=== PATIENT | female | born 1945 | race Caucasian/White ===

== ENCOUNTER 2018-07-21 14:42 | Inpatient (IN) | payer MEDICARE ==
[2018-07-21] MEDS ORDERED: Acetaminophen 325 MG TAB PO PRN (15:45)
[2018-07-21] MEDS ORDERED: Bisacodyl 5 MG TAB PO PRN (15:45)
[2018-07-21] MEDS ORDERED: cefTRIAXone\\ROCEPHIN 1 GM VIAL ONE (15:49)
[2018-07-21] MEDS ORDERED: Sodium Chloride 0.9% 1,000 ML IV SCH (16:30)
--- NOTE | 2018-07-21 16:50 | HP ---
PRIMARY CARE PROVIDER: Latoya Doe DO CHIEF COMPLAINT: HISTORY OF PRESENT ILLNESS: Ms. Talley is a pleasant 72-year-old lady, who was seen at [facility] on July 21, 2018. She was seen at [facility] following transfer from [place] for pneumonia and sepsis. She reports that 1 week ago she started feeling unwell. She reports cough over the last week. She denies sputum. She reports nausea, but no vomiting. She also reports fevers as high as 103.5 degrees Fahrenheit. She reports generalized weakness. She was started on a Z-Joseph 4 days ago. She started having diarrhea 2 days ago. She denies any abdominal pain. She reports 10 watery stools daily. She presented to the emergency room at [place]. There, she was diagnosed with pneumonia and sepsis and started on levofloxacin and transferred to this facility for further management. REVIEW OF SYSTEMS: All other systems reviewed and found to be negative. PAST MEDICAL HISTORY: Rheumatoid arthritis and pneumonia. PAST SURGICAL HISTORY: Hysterectomy. SOCIAL HISTORY: The patient denies alcohol use or recreational drug use. She smokes half a pack of cigarettes a day. She lives alone. She does not use any ambulatory aids. CODE STATUS: I discussed her code status. She is full code. ALLERGIES: NO KNOWN DRUG ALLERGIES. CURRENT MEDICATIONS: These need to be clarified, but in the past, the patient was on, 1. Humira. 2. Trevorton p.r.n. 3. Zofran p.r.n. 4. Tizanidine p.r.n. FAMILY HISTORY: Myocardial infarction in her father. PHYSICAL EXAMINATION: GENERAL: On examination, Ms. Talley is awake and alert, not in acute distress. VITAL SIGNS: Blood pressure is 138/97, pulse 83, respiratory rate 20, and oxygen saturation 100% on 4 L of oxygen. She is afebrile. EYES: No scleral icterus. No conjunctival pallor. ENT: Moist mucosal membranes. No oropharyngeal erythema or exudates. NECK: Supple and nontender. Trachea is midline. RESPIRATORY: Accessory muscles of breathing are not active. Chest wall movements are symmetric bilaterally. She has bronchial breathing over the left base. CARDIOVASCULAR: S1 and S2 are heard, regular. Peripheral pulses palpable. No carotid bruit. No pericardial rub. ABDOMEN: Soft and nontender. Bowel sounds heard. No hepatomegaly. No splenomegaly. NEUROLOGIC: Cranial nerves 2 through 12 intact. Deep tendon reflexes 2+. MUSCULOSKELETAL: Power is 5/5 in all 4 extremities. SKIN: No rashes or subcutaneous nodules. LYMPHATIC: No cervical lymphadenopathy. PSYCHIATRIC: Normal mood and normal affect. The patient is oriented to person, place, and time. LABORATORY DATA: Ms. Talley's labs and investigations were reviewed. I reviewed her 12-lead electrocardiogram, which shows sinus tachycardia and no ST changes to suggest an acute coronary syndrome. I also reviewed her chest x-ray, which shows left lower lobe infiltrate. She has normal white count; elevated neutrophil percentage of 89.4%; elevated bands of 38%; decreased sodium of 121; sodium was initially 119 at 1128 hours, improved to 121 at 1341 hours; decreased carbon dioxide of 16; elevated blood urea nitrogen of 38; elevated creatinine of 1.81; elevated AST of 90; normal ALT; normal total bilirubin; elevated alkaline phosphatase of 202. Urinalysis negative for nitrite and leukocyte esterase. ASSESSMENT AND PLAN: Ms. Talley is a pleasant 72-year-old lady, who was seen at [facility] on July 21, 2018. Her problem list includes: 1. Sepsis: Ms. Talley is presenting with sepsis, most likely secondary to pneumonia, although gastrointestinal infection cannot be ruled out given her history of diarrhea. She will be admitted to the hospital for further management. She has been started on levofloxacin. I will continue levofloxacin for now. We will await blood cultures. The patient is immunocompromised given her history of rheumatoid arthritis and history of treatment with immunosuppressant medications. We will also add meropenem to her antibiotic regimen until she improves. 2. Hyponatremia: Etiology is unclear, most likely secondary to pulmonary infection. We will consult Nephrology Service for opinion and help with management. 3. Hypokalemia: We will replace potassium. 4. Acute kidney injury: We will hydrate the patient and recheck. 5. Rheumatoid arthritis: Stable. 6. Tobacco abuse: The patient has been counseled regarding tobacco cessation. We will start nicotine replacement therapy. Many thanks for allowing me to participate in your patient's care. Please feel free to contact me with any questions or concerns. LEVEL OF RISK: High. LEVEL OF COMPLEXITY: High. Job ID: [id number]
[2018-07-21] MEDS ORDERED: Saccharomyces boulardii 250 MG CAP PO SCH (17:00)
[2018-07-21] MEDS ORDERED: Potassium Chloride 20 MEQ TAB PO SCH (17:00)
[2018-07-21] MEDS ORDERED: Azithromycin 500 MG VIAL ONE (17:35)
--- NOTE | 2018-07-21 18:08 | CON ---
DATE OF CONSULTATION: 07/21/2018 CONSULTING PHYSICIAN: Lit Gordon MD REASON FOR CONSULTATION: Hyponatremia and elevated creatinine. HISTORY OF PRESENT ILLNESS: A 72-year-old female with past medical history significant for rheumatoid arthritis on Humira, who was admitted through the ER on transfer from [facility] for further evaluation and treatment of frequent loose stool as well as hyponatremia and fever. The patient reportedly developed fever and generalized weakness of 4 days' duration for which she was seen initially at [place] [facility] on July 18, 2018. She was found to have left lower lobe infiltrate and diagnosis of pneumonia was made and the patient was discharged on oral antibiotics. She reportedly developed frequent loose stool a day after commencement of the oral antibiotics associated with generalized weakness as well as persistent of intermittent fever and shortness of breath. She also reported poor oral intake as well as nausea and weakness. Due to persistent of symptoms and development of diarrhea, the patient went back to the ER in [place] from where she was transferred over here for further evaluation and treatment. Of note, on July 18, the patient was noted to have low sodium of 125. Creatinine then was also noticed to be 1.01, which is mildly above baseline of 0.5 to 0.7. On return to the ER earlier today at [place], she was found to have a sodium of 119 with potassium of 3.0, as well as elevated creatinine of 2.13. Due to all abnormalities, Nephrology consult was requested. The patient admitted to nausea, but denied vomiting. She reportedly had more than 10 bowel motions yesterday, but had about 2 today. She also denied hematochezia, hematuria, dysuria, or hematemesis. She admitted to cough with no sputum production as well as wheezing. She denied abdominal pain, leg swelling or chest pain. In [place] [facility], the patient was treated with 2 L of normal saline as well as 750 mg of Levaquin and 60 mEq of potassium chloride. Repeat BMP showed sodium of 121 with potassium of 3.3. The patient reports feeling better following IV fluid therapy. PAST MEDICAL HISTORY: 1. Rheumatoid arthritis. 2. Chronic tobacco abuse disorder. PAST SURGICAL HISTORY: 1. Hysterectomy. 2. Cholecystectomy. FAMILY HISTORY: Significant for diabetes in mother and hypertension and cardiac disease in father. Both parents are . SOCIAL HISTORY: The patient lives with spouse. Smokes at least 10 cigarettes daily for more than 50 years. Denied alcohol or recreational drug use. ALLERGIES: NO KNOWN DRUG ALLERGIES REPORTED. MEDICATIONS: Prior to hospital medications. 1. Humira. 2. Azithromycin. 3. Augmentin. REVIEW OF SYSTEMS: A 12-point review of system performed was negative other than pertinent positives and negatives included in the history of present illness. PHYSICAL EXAMINATION: VITAL SIGNS: Blood pressure 138/97, pulse 83, respiratory rate 20, temperature 98.1, SpO2 of 100% on 4 L nasal cannula. GENERAL: Elderly female, in no obvious distress. Afebrile. Anicteric. Acyanotic. HEENT: Normocephalic, atraumatic. Pupils are reacting to light. Oral mucosa is dry. NECK: Supple and nontender with full range of motion. No lymphadenopathy or masses appreciated. RESPIRATORY: Fair air entry bilateral with left base crackle and scattered rhonchi appreciated. There is no use of accessory muscles. CARDIOVASCULAR: Regular rhythm and rate with normal heart sounds 1 and 2. GI: Abdomen is full, soft, nontender, nondistended with normal bowel sounds. EXTREMITIES: Extremities are grossly normal looking except few deviations of toes. No obvious edema or erythema was appreciated. Distal pulses are palpable. NEUROLOGIC: Conscious, alert, oriented x3 with appropriate mental status. Cranial nerves 2 through 12 are intact. The patient moves all extremities. DIAGNOSTIC DATA: CBC showed WBC count of 9.0, hemoglobin of 12.6, MCV of 85, platelet of 155. Most recent BMP showed sodium 121, potassium 3.3, chloride 95, CO2 of 16, BUN 38 , creatinine 1.81, glucose 93, calcium 7.4. Two hours prior to this BMP, CMP obtained showed sodium 119, potassium 3.0, chloride 88, CO2 of 17, anion gap 17, BUN 39, creatinine 2.13, glucose 102, calcium 8.7, total bilirubin 1.0, AST 90, ALT 49, alkaline phosphatase 202, total protein 6.3, albumin 3.0, globulin 3.3. Lactic acid earlier today 2.3, but repeat was 0.9. Urinalysis performed on July 18, 2018, showed cloudy yellow urine with specific gravity of 1.025, positive protein, small blood and bilirubin with negative glucose, ketones, nitrite and leukocyte esterase. Microscopy showed 0 to 3 rbc's and wbc 's. Of note, the patient had a sodium of 125 on July 18, 2018. Of note, however, the patient had a normal sodium of 137 in August 2016. The patient also had creatinine of 1.0 in July 18, but prior to that in 2016, creatinine ranges from 0.5 to 0.7. Chest x-ray performed earlier today showed left lower lobe infiltrate/ consolidation. EKG performed earlier today showed sinus tachycardia with no obvious ischemic changes. T-wave and ST-segments were unremarkable. ASSESSMENT: 1. Hyponatremia: Acute is unclear but is definitely not acute. At best, it will be subacute. On presentation in the ER on July 18, the patient has a sodium of 125, but this has worsened to a kelley of 118. Given that the patient had left lower lobe infiltrate and diagnosis of sepsis due to pneumonia on presentation on July 18 with sodium of 125, Legionella pneumonia is a concern. Acute worsening of hyponatremia with commencement of frequent loose stool seem to suggest dehydration with appropriate ADH secretion. Sodium and potassium improved promptly also with normal saline and potassium chloride. 2. LASHAY: Due to prerenal etiology from volume depletion from poor intake and GI losses. 3. Mixed metabolic acidosis due to alkalosis from frequent loose stool and replacement with sodium and chloride containing IV fluid. 4. Moderate dehydration with hyponatremia: Due to volume depletion with appropriate ADH secretion. 5. Hypokalemia: This most likely due to GI losses from frequent loose stool. 6. Frequent loose stools: Etiology seems to be related to antibiotic therapy, C. diff or antibiotics associated diarrhea. 7. Rheumatoid arthritis on Humira. PLAN: 1. We will replete serum potassium and this will help concentrating ability of the kidneys. We will also start the patient on gentle IV fluid therapy and monitor serum electrolytes being mindful of the correction in a 24-hour period not to be more than 12 units. 2. We will also monitor renal function. 3. We will also get urine electrolytes, urine sodium, and urine osmolality. Other treatment as per primary attending. We will follow up along with you and further evaluation and treatment depending on hospital course. Job ID: [id number] [facility]SIDE HOSPITALIzaiah
[2018-07-21 18:28] VITALS: BMI 24.0
[2018-07-21] MEDS: MEROPENEM 1 GM/50 ML 1 GM in Premix Bag 1 BAG IVPB SCH (20:10)
[2018-07-21] MEDS: Nicotine 14 MG PATCH TD SCH (21:06)
[2018-07-21] MEDS: Lactated Ringer's 1,000 ML IV SCH (21:06)
[2018-07-22] MEDS: MEROPENEM 1 GM/50 ML 1 GM in Premix Bag 1 BAG IVPB SCH ×3 (01:02→17:44)
[2018-07-22 07:23] LABS: #Basophils 0.1 thou/uL (0.0-0.2); #Lymphocytes 0.5 thou/uL (1.20-3.40); #Monocytes 0.3 thou/uL (0.11-0.59); #Neutrophils 6.1 thou/uL (1.40-6.50); %Basophils 1.7 % (0.0-1.0); %Eosinophils 0.2 % (0.0-10.0); %Lymphocytes 7.6 % (21.0-51.0); %Monocytes 3.6 % (0.0-10.0); %Neutrophils 86.9 % (42.0-75.0); Hemoglobin 9.9 g/dL (12.0-16.0); Mean Corpuscular HGB CONC 34.1 g/dL (32.0-36.0); Mean Corpuscular Hemoglobin 29.5 pg (27.0-31.0); Mean Corpuscular Volume 86.5 fL (78.0-98.0); Mean Platelet Volume 8.4 fL (7.4-10.4); Platelet Count 145 thou/uL (130-400); RBC Distribution Width 14.2 % (11.5-14.5); Red Blood Cell (RBC) Count 3.35 mill/uL (4.20-5.40)
[2018-07-22 07:41] LABS: Anion Gap 13 mmol/L (10-20); BUN (Urea Nitrogen) 35 mg/dL (9.8-20.1); Calc. Creatinine Clearance 38 mL/min (70-130); Carbon Dioxide 16 mmol/L (23-31); Chloride 100 mmol/L (98-107); Estimated GFR-MDRD 35; Glucose 81 mg/dL (80-115); Potassium 3.6 mmol/L (3.5-5.1); Sodium 125 mmol/L (136-145)
[2018-07-22] MEDS: Saccharomyces boulardii 250 MG CAP PO SCH (08:02)
[2018-07-22] MEDS: Enoxaparin Sodium 40 MG/0.4 ML SYRINGE SC SCH (08:02)
[2018-07-22] MEDS ORDERED: Prevnar 13-Val Conj/PF 0.5 ML SYRINGE IM ONE ×2 (09:00→11:00)
[2018-07-22 09:23] LABS: Potassium, Urine 14.7 mmol/L; Sodium, Urine Less than 20 mmol/L (Not Available)
[2018-07-22 09:30] LABS: Legionella Urinary Ag POSITIVE (Negative)
[2018-07-22] MEDS ORDERED: Potassium Chloride 20 MEQ TAB PO SCH (09:45)
[2018-07-22] MEDS ORDERED: predniSONE 20 MG TAB PO SCH (10:45)
[2018-07-22] MEDS ORDERED: Sodium Bicarbonate Tab 325 MG TAB PO SCH (11:15)
--- NOTE | 2018-07-22 11:29 | PRG ---
DATE OF SERVICE: 07/22/2018 SUBJECTIVE: A 72-year-old female who has been followed up for acute kidney injury and moderate hyponatremia. The patient is still having frequent loose stools, but denied nausea or vomiting. Oral intake, however, is decreased due to poor appetite. Denied fever. Reports persistent cough with little or no sputum production. OBJECTIVE: VITAL SIGNS: Temperature 98.9, pulse 78, respiratory rate 20, SpO2 of 95% on 4 L nasal cannula, blood pressure is 121/65. GENERAL: Acutely ill-looking elderly, in no obvious distress. Afebrile. Anicteric. Acyanotic. HEENT: Normocephalic, atraumatic. Pupils are reacting to light. Oral mucosa is moist. CARDIOVASCULAR: Regular rhythm and rate with normal heart sounds. RESPIRATORY: Decreased air entry left base with prolonged expiration and few scattered rhonchi on the left hemithorax. Expiratory phase is prolonged. GI: Full. Soft. Nontender. Nondistended with normal bowel sounds. EXTREMITIES: Grossly normal looking, atraumatic with no edema or erythema. NEUROLOGIC: Conscious, alert, oriented x3 with appropriate mental status. DIAGNOSTIC DATA: CBC showed WBC count of 7.0, hemoglobin of 9.9, platelet of 145, MCV of 86.5. BMP showed sodium 125, potassium 3.6, chloride 100, CO2 of 16, BUN 35, creatinine 1.48. Of note, creatinine has trended down from above 2 and sodium is up from 118. Magnesium is 1.8. Urine osmolality is 264. Urine sodium is less than 20. ASSESSMENT AND PLAN: 1. Acute kidney injury: Due to volume depletion and hemodynamic factors, the patient is still having frequent loose stools. Creatinine is trending down from above 2 to 1.4 today. We will continue gentle IV hydration and liberal oral intake advised. 2. Hyponatremia: This most likely due to dehydration with appropriate ADH secretion. Creatinine is trending up with gentle IV hydration. Sodium is up from 118 to 125 in the last 24 hours. We will continue crystalloid and monitor serum sodium. 3. Metabolic acidosis: Due to acute kidney injury and increased GI losses from persistent diarrhea. We will start the patient on sodium bicarb. 4. Moderate dehydration with hyponatremia. 5. Hypokalemia: This is due to GI losses from frequent loose stools. Repleted. Potassium today is 3.6. Due to persistent GI losses from continued diarrhea, we will give additional 40 mEq of potassium and get serum magnesium. 6. Rheumatoid arthritis, on Humira and steroid. 7. Left lower lobe pneumonia with presumed chronic obstructive pulmonary disease exacerbation. We would defer to primary attending. 8. We will get repeat renal function test in the morning. Job ID: [id number]
[2018-07-22] MEDS: Lactated Ringer's 1,000 ML IV SCH ×2 (12:17→23:03)
--- NOTE | 2018-07-22 15:21 | PDOC.PN ---
- Subjective Encounter Start Date: 07/22/18 Encounter Start Time: 13:00 Ms. Talley was seen today in follow-up of Pneumonia. She says she does not feel any better. She continues to have a cough, and continues to have diarrhea. - Objective Resuscitation Status - Order Detail: 07/21/18 15:40 Resuscitation Status Routine Resuscitation Status: FULL: Full Resuscitation Discussed with: patient Vital Signs & Weight: Vital Signs (12 hours) Temp Pulse Resp BP Pulse Ox 07/22/18 12:59 84 20 95 07/22/18 07:52 98.9 F 78 20 121/65 95 07/22/18 07:48 96 07/22/18 05:25 99.6 F 88 94 L Weight Weight 149 lb 3 oz I&O: 07/21/18 07/22/18 07/23/18 06:59 06:59 06:59 Intake Total 1400 Balance 1400 Result Diagrams: 07/22/18 06:48 07/22/18 06:48 Phys Exam - Physical Examination HEENT: PERRLA Respiratory: wheezing present Cardiovascular: RRR, no significant murmur, no rub Gastrointestinal: soft, non-tender, no distention, positive bowel sounds Musculoskeletal: no edema, pulses present Neurological: non-focal Dx/Plan (1) Legionella pneumonia Code(s): A48.1 - LEGIONNAIRES' DISEASE Status: Acute (2) Diarrhea Code(s): R19.7 - DIARRHEA, UNSPECIFIED Status: Acute (3) Acute respiratory failure with hypoxemia Code(s): J96.01 - ACUTE RESPIRATORY FAILURE WITH HYPOXIA Status: Acute (4) Tobacco use Code(s): Z72.0 - TOBACCO USE Status: Chronic (5) Hyponatremia Code(s): E87.1 - HYPO-OSMOLALITY AND HYPONATREMIA Status: Acute - Plan * Probable Legionella Pneumonia- will transition her to IV Azithrokmycin. * Diarrhea- this can be associated with Legionella Pneumonia, but will await the results from the stool samples * Tobacco Abuse- discussed smoking cessation * Hyponatremia- continue IV hydration and work-up as per Nephrology
[2018-07-22] MEDS: Nicotine 14 MG PATCH TD SCH (15:43)
[2018-07-22] MEDS: Azithromycin 500 MG in Sodium Chloride 0.9% 250 ML 250 ML IVPB SCH (18:20)
[2018-07-22] MEDS: Sodium Bicarbonate Tab 325 MG TAB PO SCH (20:17)
[2018-07-22] MEDS: guaiFENesin ER 600 MG TAB PO SCH (20:17)
[2018-07-23] MEDS: MEROPENEM 1 GM/50 ML 1 GM in Premix Bag 1 BAG IVPB SCH ×3 (02:20→19:05)
[2018-07-23 07:02] LABS: #Basophils 0.1 thou/uL (0.0-0.2); #Lymphocytes 0.9 thou/uL (1.20-3.40); #Monocytes 0.5 thou/uL (0.11-0.59); #Neutrophils 7.2 thou/uL (1.40-6.50); %Eosinophils 0.2 % (0.0-10.0); %Lymphocytes 10.4 % (21.0-51.0); %Monocytes 5.9 % (0.0-10.0); %Neutrophils 82.5 % (42.0-75.0); Hemoglobin 10.2 g/dL (12.0-16.0); Mean Corpuscular HGB CONC 34.3 g/dL (32.0-36.0); Mean Corpuscular Hemoglobin 29.9 pg (27.0-31.0); Mean Corpuscular Volume 87.1 fL (78.0-98.0); Mean Platelet Volume 8.4 fL (7.4-10.4); Platelet Count 196 thou/uL (130-400); RBC Distribution Width 14.4 % (11.5-14.5); Red Blood Cell (RBC) Count 3.41 mill/uL (4.20-5.40); White Blood Cell (WBC) Count 8.7 thou/uL (4.8-10.8)
[2018-07-23 07:11] LABS: Anion Gap 14 mmol/L (10-20); BUN (Urea Nitrogen) 29 mg/dL (9.8-20.1); Calc. Creatinine Clearance 50 mL/min (70-130); Calcium 8.5 mg/dL (7.8-10.44); Carbon Dioxide 18 mmol/L (23-31); Chloride 101 mmol/L (98-107); Estimated GFR-MDRD 49; Glucose 109 mg/dL (80-115); Potassium 4.1 mmol/L (3.5-5.1); Sodium 129 mmol/L (136-145)
[2018-07-23] MEDS: Enoxaparin Sodium 40 MG/0.4 ML SYRINGE SC SCH (07:59)
[2018-07-23] MEDS: Saccharomyces boulardii 250 MG CAP PO SCH (08:00)
[2018-07-23] MEDS: Lactated Ringer's 1,000 ML IV SCH (08:00)
[2018-07-23] MEDS: predniSONE 20 MG TAB PO SCH (08:00)
[2018-07-23] MEDS: Sodium Bicarbonate Tab 325 MG TAB PO SCH ×2 (08:00→20:34)
[2018-07-23] MEDS: guaiFENesin ER 600 MG TAB PO SCH ×2 (08:00→20:34)
--- NOTE | 2018-07-23 12:17 | PRG ---
DATE OF SERVICE: 07/23/2018 SUBJECTIVE: A 72-year-old female being followed up for LASHAY and hyponatremia. The patient was admitted due to worsening weakness associated with cough and frequent loose stools. Breathing is better and cough is subsiding. She feels better today, and oral intake is improving. Frequent loose stool is subsiding. OBJECTIVE: VITAL SIGNS: Temperature 97.8, pulse 84, respiratory rate 20, SpO2 of 97% on 3 L nasal cannula, and blood pressure is 135/72. GENERAL: Elderly female, in no obvious distress. Afebrile. Anicteric. Acyanotic. HEENT: Normocephalic and atraumatic. Pupils are reacting to light. Oral mucosa is moist. CARDIOVASCULAR: Regular rhythm and rate with normal heart sounds 1 and 2. RESPIRATORY: Decreased air entry in left base with scattered crackles. Few rhonchi also was appreciated on the left base. GI: Full, soft, nontender, and nondistended with normal bowel sounds. EXTREMITIES: Grossly normal looking, atraumatic with no edema or erythema. NEUROLOGIC: Conscious, alert, oriented x3 with appropriate mental status. Cranial nerves 2 through 12 are intact. The patient is ambulant. DIAGNOSTIC DATA: BMP today showed sodium 129, potassium 4.1, chloride 101, CO2 of 18, BUN 29, creatinine 1.1, glucose 109, calcium 8.5. Of note, creatinine was 1.48 yesterday and sodium was 125 yesterday. ASSESSMENT AND PLAN: 1. Acute kidney injury: Due to hemodynamic factors related to volume depletion. Creatinine is trending down progressively with IV fluid therapy. Creatinine today is 1.1. We will continue IV fluid and monitor renal function. 2. Hyponatremia: Due to dehydration with appropriate ADH secretion. Sodium today is 129. We will continue crystalloid and monitor serum sodium. 3. Metabolic acidosis: Due to pneumonia and acute kidney injury. Improving with treatment with bicarb containing fluid. 4. Moderate dehydration: Due to gastrointestinal losses and poor oral intake. Improved. 5. Hypokalemia: Due to gastrointestinal losses from frequent loose stools. Repleted. 6. Left lower lobe pneumonia with chronic obstructive pulmonary disease exacerbation: Improving with appropriate treatment as per primary attending. 7. Rheumatoid arthritis, on Humira and steroid. Job ID: [id number]
--- NOTE | 2018-07-23 14:27 | PDOC.PN ---
- Subjective Encounter Start Date: 07/23/18 Encounter Start Time: 13:25 Ms. Talley was seen today in follow-up of Legionella pneumonia. She says she is feeling better. she has had less shortness of breath and cough, as well as less diarrhea. - Objective Resuscitation Status - Order Detail: 07/21/18 15:40 Resuscitation Status Routine Resuscitation Status: FULL: Full Resuscitation Discussed with: patient MARGARITA Reviewed: Yes Vital Signs & Weight: Vital Signs (12 hours) Temp Pulse Resp BP Pulse Ox 07/23/18 12:00 97 07/23/18 11:32 85 16 94 L 07/23/18 08:00 97 07/23/18 07:26 97.8 F 84 20 135/72 94 L 07/23/18 06:13 83 16 93 L Weight Weight 149 lb 3 oz I&O: 07/22/18 07/23/18 07/24/18 06:59 06:59 06:59 Intake Total 1400 1900 Balance 1400 1900 Result Diagrams: 07/23/18 06:26 07/23/18 06:26 Phys Exam - Physical Examination HEENT: PERRLA Respiratory: wheezing present Cardiovascular: RRR, no significant murmur, no rub Gastrointestinal: soft, non-tender, no distention, positive bowel sounds Musculoskeletal: no edema, pulses present Dx/Plan (1) Legionella pneumonia Code(s): A48.1 - LEGIONNAIRES' DISEASE Status: Acute (2) Diarrhea Code(s): R19.7 - DIARRHEA, UNSPECIFIED Status: Acute (3) Acute respiratory failure with hypoxemia Code(s): J96.01 - ACUTE RESPIRATORY FAILURE WITH HYPOXIA Status: Acute (4) Tobacco use Code(s): Z72.0 - TOBACCO USE Status: Chronic (5) Hyponatremia Code(s): E87.1 - HYPO-OSMOLALITY AND HYPONATREMIA Status: Acute - Plan * Legionella Pneumonia- will continue IV Azithromycin * Diarrhea- improved- C. Diff is negative. Can treat symptomatically with Imodium * Hyponatremia- improved * Hopefully home soon
[2018-07-23] MEDS: Nicotine 14 MG PATCH TD SCH (16:19)
[2018-07-23] MEDS: Azithromycin 500 MG in Sodium Chloride 0.9% 250 ML 250 ML IVPB SCH (17:19)
[2018-07-24] MEDS: MEROPENEM 1 GM/50 ML 1 GM in Premix Bag 1 BAG IVPB SCH ×2 (02:19→09:46)
[2018-07-24] MEDS: Lactated Ringer's 1,000 ML IV SCH (04:30)
[2018-07-24 04:46] LABS: Anion Gap 14 mmol/L (10-20); BUN (Urea Nitrogen) 28 mg/dL (9.8-20.1); Calc. Creatinine Clearance 64 mL/min (70-130); Calcium 8.8 mg/dL (7.8-10.44); Carbon Dioxide 20 mmol/L (23-31); Chloride 102 mmol/L (98-107); Estimated GFR-MDRD 64; Glucose 99 mg/dL (80-115); Potassium 3.7 mmol/L (3.5-5.1); Sodium 132 mmol/L (136-145)
[2018-07-24] MEDS: Enoxaparin Sodium 40 MG/0.4 ML SYRINGE SC SCH (08:09)
[2018-07-24] MEDS: Sodium Bicarbonate Tab 325 MG TAB PO SCH ×2 (08:09→20:41)
[2018-07-24] MEDS: Saccharomyces boulardii 250 MG CAP PO SCH (08:09)
[2018-07-24] MEDS: guaiFENesin ER 600 MG TAB PO SCH ×2 (08:09→20:41)
[2018-07-24] MEDS: predniSONE 20 MG TAB PO SCH (08:09)
--- NOTE | 2018-07-24 08:36 | PRG ---
DATE OF SERVICE: 07/24/2018 SUBJECTIVE: A 72-year-old female being followed up for LASHAY and hyponatremia. The patient reportedly had a cough paroxysm last night, which limited her sleeping. She otherwise feels that she is doing better. Oral intake has improved. She, however, continues to cough with minimal or no sputum production. Denied nausea, vomiting, or diarrhea. OBJECTIVE: VITAL SIGNS: Temperature 98.2, pulse 84, respiratory rate 16, SpO2 of 92% on 2 L nasal cannula, blood pressure is 151/76. GENERAL: Elderly female, in no obvious distress. Afebrile. Anicteric. Acyanotic. HEENT: Normocephalic, atraumatic. Oral mucosa is moist. RESPIRATORY: Fair air entry bilaterally with crackles at both bases, especially on the left side with some scattered rhonchi. Work of breathing is not increased, however. CARDIOVASCULAR: Regular rhythm and rate. Normal heart sounds one and two. GASTROINTESTINAL: Full, soft, nontender, nondistended with normal bowel sounds. EXTREMITIES: Grossly normal-looking atraumatic with no edema, erythema, or cyanosis. NEUROLOGIC: Conscious, and alert and oriented x3 with appropriate mental status. Cranial nerves 2 through 12 are intact. The patient moves all extremities. DIAGNOSTIC DATA: BMP today showed sodium 132, potassium 3.7, chloride 102, CO2 of 20, anion gap 14, BUN 28, creatinine 0.88, glucose 99, calcium 8.8. ASSESSMENT AND PLAN: 1. Acute kidney injury: Due to hemodynamic factors related to volume depletion and poor perfusion. Creatinine is down to 0.88, which is close to her baseline. 2. Hyponatremia: Due to dehydration with appropriate ADH secretion as well as increased free water intake. Sodium level has improved significantly, it is 132 today. We will continue low does LR of further 24 hours. We will recheck BMP tomorrow morning. 3. Metabolic acidosis: Due to sepsis from pneumonia as well as acute kidney injury, improving with bicarb containing IV fluids. 4. Moderate dehydration due to gastrointestinal losses and poor oral intake. Improved. Oral intake has improved significantly. 5. Hypokalemia: Repleted. 6. Left lobar pneumonia with chronic obstructive pulmonary disease exacerbation. Treatment as per primary attending. Job ID: [id number]
--- NOTE | 2018-07-24 13:43 | PDOC.PN ---
- Subjective Encounter Start Date: 07/24/18 Encounter Start Time: 13:41 Ms. Talley says she doesn't feel as well today as she did yesterday. She continues to have a cough, but is is non-productive. She is short of breath again she says more labored. - Objective Resuscitation Status - Order Detail: 07/21/18 15:40 Resuscitation Status Routine Resuscitation Status: FULL: Full Resuscitation Discussed with: patient MAR Reviewed: Yes Vital Signs & Weight: Vital Signs (12 hours) Temp Pulse Resp BP Pulse Ox 07/24/18 12:36 97.6 F 81 20 154/82 H 96 07/24/18 12:00 81 16 96 07/24/18 09:00 86 07/24/18 08:47 97.8 F 100 20 131/62 93 L 07/24/18 05:51 84 20 93 L 07/24/18 05:27 98.2 F 84 16 151/76 H 92 L Weight Weight 149 lb 3 oz I&O: 07/23/18 07/24/18 07/25/18 06:59 06:59 06:59 Intake Total 1900 Balance 1900 Result Diagrams: 07/23/18 06:26 07/24/18 04:07 Phys Exam - Physical Examination HEENT: PERRLA Respiratory: wheezing present + rales at the left base Cardiovascular: RRR, no significant murmur, no rub Gastrointestinal: soft, non-tender, no distention, positive bowel sounds Musculoskeletal: no edema, pulses present Dx/Plan (1) Legionella pneumonia Code(s): A48.1 - LEGIONNAIRES' DISEASE Status: Acute (2) Diarrhea Code(s): R19.7 - DIARRHEA, UNSPECIFIED Status: Acute (3) Acute respiratory failure with hypoxemia Code(s): J96.01 - ACUTE RESPIRATORY FAILURE WITH HYPOXIA Status: Acute (4) Tobacco use Code(s): Z72.0 - TOBACCO USE Status: Chronic (5) Hyponatremia Code(s): E87.1 - HYPO-OSMOLALITY AND HYPONATREMIA Status: Acute - Plan * Legionella Pneumonia- will continue IV Azithromycin- will check a CXR as her symptoms are symptomatically worse * Diarrhea- likely as a result of the above- improving * I suspect she has some undiagnosed COPD ( she is a long time smoker). Continue Duonebs, and will ass a long acting beta-agonist * Hyponatremia- continues to improve
[2018-07-24] MEDS: Nicotine 14 MG PATCH TD SCH (13:58)
--- NOTE | 2018-07-24 14:30 | RAD ---
EXAM: Chest Two Views 07/24/2018 2:26 PM HISTORY: History: Pneumonia COMPARISON: July 18, 2018 FINDINGS: Heart: Normal in size and contour. Pulmonary vessels: Normal. Costophrenic angles: There are new small bilateral pleural effusions. Lungs: There are worsening opacities within the left midlung and left lower lobe. Pneumothorax: None. Osseous structures:There is scattered degenerative and osteoarthritic change present. Additional findings: Cholecystectomy clips. IMPRESSION: Worsening left upper lobe and left lower lobe pneumonia with new bilateral pleural effusions.
[2018-07-24] MEDS ORDERED: Loperamide HCl 2 MG CAP PO PRN (14:45)
[2018-07-24] MEDS: Azithromycin 500 MG in Sodium Chloride 0.9% 250 ML 250 ML IVPB SCH (17:33)
[2018-07-24] MEDS: Mometasone/Formoterol 120 PUFF INHALER INH SCH (18:37)
[2018-07-24] MEDS ORDERED: Dextromethorphan Polistirex 30 MG/5 ML (89 ML BOTTLE) PO SCH (21:30)
[2018-07-25] MEDS: Lactated Ringer's 1,000 ML IV SCH (04:56)
[2018-07-25] MEDS: Mometasone/Formoterol 120 PUFF INHALER INH SCH (06:26)
[2018-07-25 07:28] LABS: Anion Gap 13 mmol/L (10-20); BUN (Urea Nitrogen) 22 mg/dL (9.8-20.1); Calc. Creatinine Clearance 71 mL/min (70-130); Calcium 8.3 mg/dL (7.8-10.44); Carbon Dioxide 22 mmol/L (23-31); Chloride 104 mmol/L (98-107); Estimated GFR-MDRD 72; Glucose 80 mg/dL (80-115); Potassium 3.9 mmol/L (3.5-5.1); Sodium 135 mmol/L (136-145)
[2018-07-25 08:37] VITALS: BP 138/70; TEMP 98.9
--- NOTE | 2018-07-25 09:58 | PRG ---
DATE OF SERVICE: 07/25/2018 SUBJECTIVE: A 72-year-old female admitted for acute respiratory failure with hypoxia due to chronic obstructive pulmonary disease and pneumonia, who we are seeing for LASHAY and hyponatremia. The patient reports feeling a lot better. Still coughing with minimal or no sputum production. Denied nausea, vomiting, or diarrhea. Oral intake has improved. OBJECTIVE: VITAL SIGNS: Temperature 98.9, pulse 85, respiratory rate 20, SpO2 of 92 on 2 L nasal cannula, blood pressure is 138/70. GENERAL: Healthy-looking elderly female, in no obvious distress. Afebrile. Anicteric. Acyanotic. HEENT: Normocephalic, atraumatic. Pupils are equal and reacting to light. CARDIOVASCULAR: Regular rhythm and rate with normal heart sounds 1 and 2. RESPIRATORY: Fair air entry bilateral with left basal crackles and few scattered rhonchi. There is no use of accessory muscles. GI: Full. Soft. Nontender. Nondistended with normal bowel sounds. EXTREMITIES: Grossly normal looking, atraumatic with no edema, erythema, or cyanosis. NEUROLOGIC: Conscious and alert, oriented x3 with appropriate mental status. Cranial nerves 2 through 12 are intact. DIAGNOSTIC DATA: BMP showed sodium 135, potassium 3.9, chloride 104, CO2 of 22, creatinine 0.79, BUN 22, glucose 80, calcium 8.3. ASSESSMENT AND PLAN: 1. Acute kidney injury: Resolved with IV fluid therapy. This is due to prerenal from hemodynamic factors related to volume depletion and sepsis. 2. : Due to dehydration with appropriate ADH secretion. Resolved with continuous IV fluid therapy. 3. Hypokalemia: Repleted. 4. Metabolic acidosis: Due to sepsis and acute kidney injury, improved. 5. Left lower lobe pneumonia and chronic obstructive pulmonary disease exacerbation as well as acute respiratory failure with hypoxia. Treatment as per primary attending. 6. Disposition: The patient can be discharged from Nephrology point of view. We will sign off at this time. Contact us for any clarification or questions. Job ID: [id number]
[2018-07-25] MEDS: guaiFENesin ER 600 MG TAB PO SCH (10:00)
[2018-07-25] MEDS: predniSONE 20 MG TAB PO SCH (10:00)
[2018-07-25] MEDS: Sodium Bicarbonate Tab 325 MG TAB PO SCH (10:00)
[2018-07-25] MEDS: Enoxaparin Sodium 40 MG/0.4 ML SYRINGE SC SCH (10:01)
[2018-07-25] MEDS: Saccharomyces boulardii 250 MG CAP PO SCH (10:01)
--- NOTE | 2018-07-25 16:36 | PDOC.EVN ---
Event Note - Event Note Event Note: Persistent hypoxia in context of chronic tobacco abuse and likely COPD with exacerbation contributing to persistent need for O2 supplementation. Will continue Prednisone, Dulera, Zithromax and arrange for home O2 due to COPD. Please see dictated discharge summary for full details.
--- NOTE | 2018-07-26 04:10 | DIS ---
DATE OF ADMISSION: 07/21/2018 DATE OF DISCHARGE: 07/25/2018 DISCHARGE DIAGNOSES: 1. Legionella pneumonia. 2. Acute hypoxic respiratory failure secondary to #1. 3. Gastroenteritis, resolving. 4. Tobacco abuse. 5. Hyponatremia, improved. 6. Acute kidney injury, resolved. CONSULTATIONS: Dr. Tovar with nephrology service. PERTINENT LAB AND X-RAY FINDINGS: Sodium ranged between 119 to 135. Creatinine ranged between 0.79 to 1.48. Estimated GFR ranged between 35 to 72, magnesium level 1.8. CBC showed a hemoglobin ranged between 9.9 to 10.2. Urine Legionella pneumophila antigen positive, 07/22/2018. Blood cultures x2 from 07/18/2018 showed no growth at 5 days. Blood cultures x2 dated 07/21/2018, no growth at 48 hours. C difficile antigen toxin dated 07/22/2018, negative. Portable chest x-ray dated 07/21/2018, showed left lower lobe pneumonia. Portable chest x-ray dated 07/24/2018, showed left upper and left lower lobe pneumonia with bilateral pleural effusions. HOSPITAL COURSE: The patient was admitted to the medical floor who initially presented with pneumonia, with increased cough and fever. The patient initially managed with Levaquin and continued on Levaquin after admission. The patient underwent evaluation including urine Legionella studies showing a positive Legionella pneumophila antigen. The patient transitioned to Zithromax and continued on IV Zithromax throughout the hospital course. The patient was also noted with hyponatremia likely due to poor oral intake and hypovolemia, receiving IV fluids throughout the hospital course. The patient did have correction of her sodium values as well as potassium and clinically stabilized with supportive management. The patient received hydration due to acute kidney injury as well with normalization of renal function prior to discharge. The patient tolerated regular oral intake and voided appropriately. Vital signs have remained stable. The patient continued to receive oxygen supplementation throughout the hospital course, however, was unable to wean off oxygen support. The patient has been evaluated and will receive home oxygen at 2 L/minute by nasal cannula. I have examined the patient and discussed followup instructions at the time of discharge. The patient verbalized understanding and agreement, ready for discharge on 07/25/2018. DISCHARGE MEDICATIONS: 1. Zithromax 500 mg p.o. daily x7 days. 2. Dulera 2 puffs inhaled b.i.d. 3. Prednisone 40 mg p.o. q.a.m. x3 days, followed by 20 mg p.o. daily x3 days. 4. Vitamin D3 1000 units p.o. daily. 5. Humira 0.8 mL subcutaneously q.7 days. FOLLOWUP: The patient may follow up with her primary care provider, Dr. Latoya Doe, within 7 days of discharge. CONDITION ON DISCHARGE: Stable. ACTIVITY: Ad-narciso. DIET: Regular. SPECIAL INSTRUCTIONS: Home oxygen set up at 2 L/minute by nasal cannula continuously. CODE STATUS: Full. DISPOSITION: Home, 07/25/2018. TIME SPENT: Total time preparing and coordinating discharge, 33 minutes. Job ID: [id number]
== END 2018-07-25 19:08 | disposition home or self-care (01) | DRG 177 ==
LOC: ERS 14:42 → ERHOLD 15:52 → T4-A 18:31
PROVIDERS: ADMIT Internal Medicine; ATTEND Internal Medicine
DX: A48.1 Legionnaires' disease (principal); J96.01 Acute respiratory failure with hypoxia; J44.1 Chronic obstructive pulmonary disease with (acute) exacerbation; N17.9 Acute kidney failure, unspecified; E87.1 Hypo-osmolality and hyponatremia; E87.2 Acidosis; J44.0 Chronic obstructive pulmonary disease with (acute) lower respiratory infection; F17.210 Nicotine dependence, cigarettes, uncomplicated; E87.6 Hypokalemia; M06.9 Rheumatoid arthritis, unspecified; K52.9 Noninfective gastroenteritis and colitis, unspecified; E86.0 Dehydration; Z90.49 Acquired absence of other specified parts of digestive tract; Z90.710 Acquired absence of both cervix and uterus; Z79.899 Other long term (current) drug therapy; Z79.52 Long term (current) use of systemic steroids
CPT/HCPCS: 36415; 71046; 80048; 82436; 82570; 83735; 83930; 83935; 84133; 84300; 85025; 87324; 87449; 87899; 90471; 90670; 94640; 96365; 96375; G0009; J0456; J0696; J1650; J2185; J7050; J7512; J7620

== ENCOUNTER 2018-09-12 08:09 | Day surgery (SDC) | payer MEDICARE ==
--- NOTE | 2018-09-09 10:07 | HP ---
This is an H and P for thoracentesis on Wednesday. HISTORY OF PRESENT ILLNESS: Ms. Talley is a very pleasant woman, who was hospitalized here in July with pneumonia. This is felt to be legionnaires given a positive urinary Legionella antigen. She was treated with a macrolide and sent home, and says she has been feeling better, but her x-rays failed to improve. She had a CT scan that showed a left pleural effusion and atelectasis of her left lower lobe. I was consulted to see her for further evaluation of this. PAST MEDICAL HISTORY: Remarkable for, 1. Smoking. 2. Status post hysterectomy. 3. Status post cholecystectomy. 4. History of oxygen that was prescribed when she was discharged on 07/25/2018. 5. History rheumatoid arthritis, off medicines. 6. History of pneumonia in the past. SOCIAL HISTORY: She is a half pack-a-day smoker. She says she has cut back to 3 cigarettes a day since she was in the hospital. PHYSICAL EXAMINATION: VITAL SIGNS: Pulse 76, respiratory rate 18, oximetry is 94 to 95 on room air in the office after 30 minutes. HEENT: Pupils are equal. Sclerae are anicteric. Extraocular movements are intact. NECK: Supple. No lymphadenopathy. LUNGS: Clear with exception of decreased breath sounds at her left base. HEART: Regular rhythm. S1 and S2 are normal. No gallop. No murmur. ABDOMEN: Soft and nontender. EXTREMITIES: Without clubbing, cyanosis, or edema. NEUROLOGIC: Nonfocal. IMPRESSION: CT scan shows pleural effusion on the left and atelectasis of her left lower lobe. PLAN: Thoracentesis first. If this does not give us a diagnosis, then perhaps fiberoptic bronchoscopy will be needed. Risk of bleeding, infection, lung collapse, and least likely were explained to the patient and is on the schedule for Wednesday. Job ID: [id number]
[2018-09-12 09:59] LABS: Fluid, pH - Pleural Fld 7.24 (7.60 - 7.66)
[2018-09-12 11:19] LABS: Fluid, Protein 5.9 g/dL (Not Available)
[2018-09-12 13:01] LABS: BF Color White; Body Fluid Source Thoracentesis Fluid; Clarity Clear (Clear); RBC Background Count 0.002; Tube # EDTA
[2018-09-12 13:22] LABS: BF WBC/Nonhematics Ct. - Manua 7275 /cumm
[2018-09-12 13:23] LABS: BF RBC Count - Manual 945 /cumm
[2018-09-12 13:27] LABS: BF Segmented Neutrophils 4 %; Cell Count Non Hematic 40 %; Lymphocytes 56 %
--- NOTE | 2018-09-12 16:44 | OP ---
DATE OF PROCEDURE: 09/12/2018 PROCEDURE PERFORMED: Thoracentesis. NURSING HOME ADMINISTRATOR: Iván Ventura MD DESCRIPTION OF PROCEDURE: Consent was obtained from the patient prior to the procedure. Left posterior hemithorax was prepped with chlorhexidine. 10 mL of 1% lidocaine was used to anesthetize the skin and the pleura. The fluid was localized with a 22-gauge needle. An 8-Eritrean catheter was inserted and approximately 450 mL of clear yellow pleural fluid was evacuated without difficulty. There was no clinical indication of pneumothorax, so a chest x-ray was not done. She was observed for a period of time after the procedure to make sure she was stable and discharged to home. She is to contact me in 2 days for results. Job ID: [id number]
== END 2018-09-12 10:02 | disposition home or self-care (01) ==
LOC: SDC 08:09
PROVIDERS: ATTEND Internal Medicine Critical Care Medicine
PROC: 0W9B30Z Drainage of Left Pleural Cavity with Drainage Device, Percutaneous Approach (ICD-10-PCS; principal; 2018-09-12)
DX: J90 Pleural effusion, not elsewhere classified (principal); J98.11 Atelectasis; F17.210 Nicotine dependence, cigarettes, uncomplicated; M06.9 Rheumatoid arthritis, unspecified; Z87.01 Personal history of pneumonia (recurrent); Z90.49 Acquired absence of other specified parts of digestive tract; Z79.899 Other long term (current) drug therapy
CPT/HCPCS: 32554; 82150; 82945; 83615; 84157; 85060; 87070; 87102; 87116; 87205; 87206; 88112; 88184; 88305; 89051

== ENCOUNTER 2018-09-29 09:01 | Outpatient (CLI) | payer MEDICARE ==
--- NOTE | 2018-09-29 09:34 | RAD ---
2 views of the chest: 09/29/2018 COMPARISON: 08/31/2018 HISTORY: Pneumonia and dyspnea FINDINGS: There is no pneumothorax seen on either side. The right lung is clear. There is dense pleural and parenchymal opacity identified within the left lung base, most prominent p osteriorly on the lateral examination. When compared to the 08/31/2018 examination there has been interval improvement in the pleural and parenchymal opacity but there is significant residual dense l eft basilar pleural and parenchymal opacity. This density appears lobulated and confined posteriorly on the lateral examination which could signify loculated pleural effusion. This may be be tter assessed with follow-up CT examination. IMPRESSION: Improved pleural and parenchyma opacity in the left lung base, with significant residual opacity seen. Findings suggest infectious pneumonitis/aspiration with parapneumonic effusion, possibly loculated.
== END 2018-09-29 09:02 | disposition home or self-care (01) ==
LOC: RAD 09:01
PROVIDERS: ATTEND Internal Medicine Critical Care Medicine
DX: R06.00 Dyspnea, unspecified (principal); R91.8 Other nonspecific abnormal finding of lung field
CPT/HCPCS: 71046

== ENCOUNTER 2018-11-16 09:21 | Outpatient (CLI) | payer MEDICARE ==
--- NOTE | 2018-11-16 09:39 | RAD ---
EXAM: Chest 2 views: HISTORY: Dyspnea COMPARISON: 09/29/2018 FINDINGS: There is a normal-sized cardiomediastinal silhouette. A small left pleural effusion. No consolidation or mass are seen. The bones are unremarkable. IMPRESSION: Small left pleural effusion
== END 2018-11-16 09:22 | disposition home or self-care (01) ==
LOC: RAD 09:21
PROVIDERS: ATTEND Internal Medicine Critical Care Medicine
DX: R06.00 Dyspnea, unspecified (principal); J90 Pleural effusion, not elsewhere classified
CPT/HCPCS: 71046

== ENCOUNTER 2018-11-23 09:58 | Day surgery (SDC) | payer MEDICARE ==
[2018-11-22 11:28] VITALS: BMI 20.1
--- NOTE | 2018-11-22 12:11 | HP ---
Areli Talley is for bronchoscopy tomorrow. HISTORY OF PRESENT ILLNESS: Ms. Talley is a very pleasant woman, who was treated earlier this year for pneumonia. She had an effusion. She was referred for persistence of her left lower lobe abnormalities. She underwent thoracentesis at the beginning of September. Fluid was exudative with 7275 red cells, mostly lymphocytes. Cytopathology was negative. Followup chest x-ray done last week showed very little recurrence of pleural fluid, but she still has an alveolar infiltrate in her left base. Plan is for bronchoscopy to rule out bronchoalveolar carcinoma or another cause. PAST MEDICAL HISTORY: Remarkable for; 1. Rheumatoid arthritis. 2. Status post hysterectomy. 3. Status post cholecystectomy. FAMILY HISTORY: Negative for lung disease in early age. Positive for diabetes, heart disease. SOCIAL HISTORY: She is a smoker. She has a distant history of heavy alcohol use. She does not use drugs. ALLERGIES: SHE HAS NO DRUG ALLERGIES. REVIEW OF SYSTEMS: Ten-point review of systems otherwise negative. PHYSICAL EXAMINATION: VITAL SIGNS: Blood pressure in the office 130/76, pulse 80, respiratory rate is 18, oximetry 94% on room air. HEENT: Pupils are equal. Sclerae are anicteric. NECK: Without lymphadenopathy. LUNGS: Remarkable for crackles at her left base. HEART: Regular rhythm. No S3. ABDOMEN: Soft and nontender. EXTREMITIES: Without clubbing, cyanosis, or edema. NEUROLOGIC: Grossly nonfocal. IMPRESSION: Persistent infiltrate left base. PLAN: Bronchoscopy with transbronchial biopsies. Risks of bleeding, infection, lung collapse and least likely were explained to the patient. She is willing to proceed. All questions of the patient and family were answered. Job ID: [id number]
[2018-11-23] MEDS ORDERED: Lidocaine 2% Jelly 5 ML TUBE ONE ×2 (10:07→10:08)
[2018-11-23] MEDS ORDERED: Benzocaine 20% Spray 60 ML CAN ONE (10:07)
[2018-11-23] MEDS ORDERED: Lidocaine 1% (PF) 30 ML VIAL ONE (10:07)
[2018-11-23] MEDS ORDERED: Fentanyl 100 MCG/2 ML VIAL ONE (10:55)
[2018-11-23] MEDS ORDERED: Lidocaine 4% PF 5 ML AMP NEB SCH (11:45)
[2018-11-23] MEDS ORDERED: Sodium Chloride 0.9% 1,000 ML IV SCH (11:45)
[2018-11-23] MEDS ORDERED: Lidocaine 1% PF 5 ML VIAL ONE (12:42)
[2018-11-23] MEDS ORDERED: PROPOFOL 200 MG/20 ML VIAL ONE (12:42)
[2018-11-23] MEDS ORDERED: Dexamethasone 20 MG/5 ML VIAL ONE (12:42)
[2018-11-23] MEDS ORDERED: Rocuronium Bromide 10 MG/ML (10ML VIAL) ONE (12:42)
[2018-11-23] MEDS ORDERED: Ondansetron PF 4 MG/2 ML Vial ONE (12:42)
--- NOTE | 2018-11-23 14:48 | RAD ---
PORTABLE CHEST: 11/23/18 INDICATIONS: Post left lung biopsy. COMPARISON: 11/16/18. Also compared to CT 11/06/18. Hazy opacity in the left perihilar region probably relates to the mass density noted on CT in the pos terior left mid chest. There is evidence of left pleural effusion. Right lung appears clear. Heart an d mediastinum unremarkable. IMPRESSION: Hazy left perihilar opacity may relate to the known mass density seen on recent CT. Persistent left e ffusion again noted. No acute interval change. POS: OFF
--- NOTE | 2018-11-24 08:39 | OP ---
DATE OF PROCEDURE: 11/23/2018 PROCEDURES PERFORMED: Bronchoscopy with transbronchial biopsies under fluoroscopy with lower lobe washings, lower lobe brushings. INDICATION: Persistent left lower lobe alveolar infiltrate. INDICATIONS FOR PROCEDURE: Ms. Talley was brought to Day surgery, identified and then transferred to the endo suite. She was sedated with anesthesia via general endotracheal intubation. DESCRIPTION OF PROCEDURE: Bronchoscope was introduced once she was sedated via the endotracheal tube and passed down under left lower lobe. Washings were obtained randomly in the lower lobe segmental bronchi followed by transbronchial biopsies x5 under fluoroscopy. The scope was then withdrawn. All respective segments, left lung and right lung were identified with no endobronchial lesions identified. The patient was transferred to Day Surgery. A chest radiograph was done. No pneumothorax was seen. She will follow up with me Wednesday for results. Specimens were sent for cultures for AFB, fungus and bacteria and then brushings and biopsies were sent for cytology to rule out bronchoalveolar carcinoma or bronchiolitis obliterans and organizing pneumonia would seem to me be the most likely 2 diagnoses. Job ID: [id number]
== END 2018-11-23 15:13 | disposition home or self-care (01) ==
LOC: SDC 09:58
PROVIDERS: ATTEND Internal Medicine Critical Care Medicine
PROC: 0BDJ8ZX Extraction of Left Lower Lung Lobe, Via Natural or Artificial Opening Endoscopic, Diagnostic (ICD-10-PCS; principal; 2018-11-23)
PROC: 0BDJ8ZX Extraction of Left Lower Lung Lobe, Via Natural or Artificial Opening Endoscopic, Diagnostic (ICD-10-PCS; 2018-11-23)
DX: R91.8 Other nonspecific abnormal finding of lung field (principal); J90 Pleural effusion, not elsewhere classified; F17.200 Nicotine dependence, unspecified, uncomplicated; M06.9 Rheumatoid arthritis, unspecified
CPT/HCPCS: 71045; 76000; 87070; 87102; 87116; 87205; 87206; 88112; 88305; 88312; 94640; J1100; J2001; J2405; J2704; J3010; J7620

== ENCOUNTER 2019-01-04 10:38 | Outpatient (CLI) | payer MEDICARE, OTHER ==
--- NOTE | 2019-01-04 12:10 | RAD ---
2 VIEW CHEST: Date: 01/04/19 INDICATION: Dyspnea. COMPARISON: 11/16/18 and 11/23/18. FINDINGS: Persistent density in the posterior left lower lobe which appears to abut the posterior pleural surfa ce on the lateral view. I cannot exclude a developing cavitary component on the lateral exam. Right lung remains clear. IMPRESSION: Persistent opacity which appears pleural based in the posterior right lower lobe. There is suggestion of cavitation on the lateral view within this area of density. Close follow-up recommended. POS: TPC
== END 2019-01-04 10:39 | disposition home or self-care (01) ==
LOC: RAD 10:38
PROVIDERS: ATTEND Internal Medicine Critical Care Medicine
DX: R06.00 Dyspnea, unspecified (principal); R91.8 Other nonspecific abnormal finding of lung field
CPT/HCPCS: 71046

== ENCOUNTER 2019-08-08 10:34 | Outpatient (CLI) | payer MEDICARE, OTHER ==
--- NOTE | 2019-08-08 10:57 | RAD ---
EXAM: Chest PA and lateral: HISTORY: Dyspnea COMPARISON: 11/06/2018, 01/04/2019 FINDINGS: Heart: Normal cardiac silhouette Aorta: Atherosclerosis. The ascending thoracic aorta appears to be enlarged. Pulmonary vessels: Normal Costophrenic angles: Costophrenic angles are clear. Lungs: Hyperinflation. Persistent opacification of the left lower lobe. Scar or atelectasis are favor ed. Underlying mass cannot be excluded Pneumothorax: No pneumothorax Osseous structures: No osseous abnormalities IMPRESSION: 1. Prominence of the ascending thoracic aorta 2. Hyperinflation 3. Persistent opacification of the left lower lobe which may represent sequelae of previous infection . If there is concern for underlying mass, repeat CT can be performed. CT from 11/06/2018 demonstrate dense consolidation in the left lower lobe CODE T
== END 2019-08-08 10:35 | disposition home or self-care (01) ==
LOC: BICRAD 10:34
PROVIDERS: ATTEND Internal Medicine Critical Care Medicine
DX: R06.00 Dyspnea, unspecified (principal); R91.8 Other nonspecific abnormal finding of lung field
CPT/HCPCS: 71046

== ENCOUNTER 2020-06-13 09:28 | Outpatient (CLI) | payer MEDICARE, OTHER | END 2020-06-13 09:29 | disposition home or self-care (01) | LOC: BICRAD 09:28 | PROVIDERS: ATTEND Internal Medicine Critical Care Medicine | DX: R06.00 Dyspnea, unspecified (principal) | CPT/HCPCS: 71046 ==

== ENCOUNTER 2021-09-22 10:15 | Outpatient (CLI) | payer MEDICARE, OTHER | END 2021-09-22 10:16 | disposition home or self-care (01) | LOC: RAD 10:15 | PROVIDERS: ATTEND Internal Medicine Critical Care Medicine | DX: R06.00 Dyspnea, unspecified (principal); R91.8 Other nonspecific abnormal finding of lung field | CPT/HCPCS: 71046 ==

== ENCOUNTER 2022-03-20 18:11 | Inpatient (IN) | payer MEDICARE, OTHER ==
[~2022-03-20 18:11] MED LIST: Iopamidol-370 76% 500 ML 1 ML ONE
[2022-03-20] MEDS ORDERED: Magnesium 2 GM/50 ML BAG (IN WATER) ONE (18:38)
[2022-03-20] MEDS ORDERED: cefTRIAXone\\ROCEPHIN 1 GM VIAL ONE (18:38)
[2022-03-20] MEDS ORDERED: Dexamethasone 10 MG/ML VIAL ONE (18:41)
[2022-03-20 18:56] LABS: #Lymphocytes 1.1 thou/uL (1.20-3.40); #Monocytes 0.3 thou/uL (0.11-0.59); #Neutrophils 11.9 thou/uL (1.40-6.50); %Basophils 0.1 % (0.0-1.0); %Eosinophils 0.2 % (0.0-10.0); %Lymphocytes 8.1 % (21.0-51.0); %Neutrophils 89.7 % (42.0-75.0); Hemoglobin 13.9 g/dL (12.0-16.0); Mean Corpuscular HGB CONC 33.9 g/dL (32.0-36.0); Mean Corpuscular Hemoglobin 29.6 pg (27.0-31.0); Mean Corpuscular Volume 87.4 fl (78.0-98.0); Mean Platelet Volume 6.7 fL (7.4-10.4); Platelet Count 513 10x3/uL (130-400); RBC Distribution Width 13.4 % (11.5-14.5); Red Blood Cell (RBC) Count 4.69 mill/uL (4.20-5.40); White Blood Cell (WBC) Count 13.3 10x3/uL (4.8-10.8)
[2022-03-20 19:15] LABS: ALT (SGPT) 18 U/L (8-55); AST (SGOT) 19 U/L (5-34); Albumin 4.2 g/dL (3.4-4.8); Alkaline Phosphatase 286 U/L (40-110); Anion Gap 17 mmol/L (10-20); BUN (Urea Nitrogen) 13 mg/dL (9.8-20.1); Bilirubin, Total 0.3 mg/dL (0.2-1.2); CK (CPK) 28 U/L (29-168); Calc. Creatinine Clearance 0 mL/min (70-130); Calcium 9.8 mg/dL (7.8-10.44); Carbon Dioxide 20 mmol/L (23-31); Chloride 94 mmol/L (98-107); Estimated GFR 92; Globulin 3.5 g/dL (2.4-3.5); Glucose 101 mg/dL (83-110); Lipase 43 U/L (8-78); Potassium 4.4 mmol/L (3.5-5.1); Protein, Total 7.7 g/dL (5.8-8.1); Sodium 127 mmol/L (136-145)
[2022-03-20] MEDS ORDERED: LORazepam 2 MG/ML SYR.(CARPUJECT) ONE (21:01)
[2022-03-20 21:29] LABS: SARS-CoV-2 NAA Rapid Test Not Detected (NotDetected)
[2022-03-20] MEDS ORDERED: Ondansetron PF 4 MG/2 ML Vial IVP PRN (21:30)
[2022-03-20] MEDS ORDERED: Ondansetron ODT 4 MG TAB SL PRN (21:30)
[2022-03-20] MEDS ORDERED: Ipratropium/Albuterol 3 ML NEB NEB PRN (21:32)
[2022-03-20] MEDS: Sodium Chloride 0.9% 1,000 ML IV SCH (21:40)
[2022-03-20] MEDS ORDERED: Senokot S 8.6-50 MG TAB PO PRN (22:21)
[2022-03-20] MEDS ORDERED: Amlodipine 10 MG TAB PO SCH (22:45)
[2022-03-20] MEDS ORDERED: Nicotine 14 MG PATCH ONE (22:48)
[2022-03-20] MEDS: Nicotine 21 MG PATCH TD SCH (23:11)
[2022-03-21] MEDS: Ipratropium/Albuterol 3 ML NEB NEB SCH ×3 (00:05→07:54)
[2022-03-21] MEDS ORDERED: Ipratropium/Albuterol 3 ML NEB ONE (03:00)
[2022-03-21 05:50] LABS: #Lymphocytes 0.8 thou/uL (1.20-3.40); #Monocytes 0.2 thou/uL (0.11-0.59); #Neutrophils 7.6 thou/uL (1.40-6.50); %Basophils 0.1 % (0.0-1.0); %Eosinophils 0.2 % (0.0-10.0); %Lymphocytes 9.2 % (21.0-51.0); %Monocytes 2.2 % (0.0-10.0); %Neutrophils 88.3 % (42.0-75.0); Hemoglobin 11.6 g/dL (12.0-16.0); Mean Corpuscular HGB CONC 34.2 g/dL (32.0-36.0); Mean Corpuscular Volume 87.6 fl (78.0-98.0); Mean Platelet Volume 6.2 fL (7.4-10.4); Platelet Count 435 10x3/uL (130-400); RBC Distribution Width 13.2 % (11.5-14.5); Red Blood Cell (RBC) Count 3.85 mill/uL (4.20-5.40); White Blood Cell (WBC) Count 8.6 10x3/uL (4.8-10.8)
[2022-03-21] MEDS ORDERED: Dexamethasone 10 MG/ML VIAL SLOW IVP SCH (06:00)
[2022-03-21 06:13] LABS: Anion Gap 12 mmol/L (10-20); BUN (Urea Nitrogen) 13 mg/dL (9.8-20.1); Calc. Creatinine Clearance 0 mL/min (70-130); Calcium 8.6 mg/dL (7.8-10.44); Carbon Dioxide 18 mmol/L (23-31); Chloride 104 mmol/L (98-107); Estimated GFR 97; Glucose 130 mg/dL (83-110); Sodium 130 mmol/L (136-145)
[2022-03-21] MEDS ORDERED: Dexamethasone 4 mg/ml Vial ONE (06:17)
[2022-03-21 07:07] VITALS: BMI 22.8
[2022-03-21] MEDS: Sodium Chloride 0.9% 1,000 ML IV SCH (08:45)
[2022-03-21] MEDS ORDERED: FLU VACC QS2022-23(65YR UP)/PF 240 MCG/0.7 ML SYRINGE IM ONE (10:15)
[2022-03-21] MEDS ORDERED: Lorazepam 0.5 MG TAB PO PRN (10:24)
[2022-03-21] MEDS ORDERED: traMADol HCl 50 MG TAB PO PRN (10:31)
[2022-03-21] MEDS: Azithromycin 500 MG in Sodium Chloride 0.9% 250 ML 250 ML IVPB SCH (11:51)
[2022-03-21] MEDS: Famotidine 20 MG TAB PO SCH ×2 (11:52→20:44)
[2022-03-21] MEDS: Nicotine 21 MG PATCH TD SCH (17:12)
[2022-03-21] MEDS: Acetaminophen 325 MG TAB PO PRN (19:47)
[2022-03-21] MEDS: cefTRIAXone\\ROCEPHIN 1 GM in Sodium Chloride 0.9% 100 ML IVPB SCH (20:43)
[2022-03-21] MEDS: Amlodipine 10 MG TAB PO SCH (20:44)
[2022-03-21] MEDS: Melatonin 3 MG TAB PO PRN (20:44)
[2022-03-21] MEDS: tiZANidine HCl 4 MG TAB PO SCH (20:45)
[2022-03-22] MEDS: traMADol HCl 50 MG TAB PO PRN (01:55)
[2022-03-22] MEDS: Lorazepam 0.5 MG TAB PO PRN (03:06)
[2022-03-22] MEDS: Acetaminophen 325 MG TAB PO PRN (03:06)
[2022-03-22] MEDS: Cyanocobalamin (Vitamin B-12) 1,000 MCG TAB PO SCH (09:08)
[2022-03-22] MEDS: Dexamethasone 4 mg/ml Vial SLOW IVP SCH (09:08)
[2022-03-22] MEDS: Famotidine 20 MG TAB PO SCH ×2 (09:08→20:15)
[2022-03-22] MEDS: Cholecalciferol 1,000 UNITS (25 MCG) TAB PO SCH (09:08)
[2022-03-22] MEDS: Azithromycin 500 MG in Sodium Chloride 0.9% 250 ML 250 ML IVPB SCH (09:26)
[2022-03-22] MEDS: cefTRIAXone\\ROCEPHIN 1 GM in Sodium Chloride 0.9% 100 ML IVPB SCH (19:21)
[2022-03-22] MEDS: Nicotine 21 MG PATCH TD SCH (20:13)
[2022-03-22] MEDS: Amlodipine 10 MG TAB PO SCH (20:15)
[2022-03-22] MEDS: Melatonin 3 MG TAB PO PRN (20:15)
[2022-03-22] MEDS: tiZANidine HCl 4 MG TAB PO SCH (20:16)
[2022-03-23] MEDS: Lorazepam 0.5 MG TAB PO PRN (03:15)
[2022-03-23 06:20] LABS: #Eosinphils 0.1 thou/uL (0.0-0.7); #Lymphocytes 2.7 thou/uL (1.20-3.40); #Monocytes 1.1 thou/uL (0.11-0.59); #Neutrophils 8.1 thou/uL (1.40-6.50); %Basophils 0.1 % (0.0-1.0); %Eosinophils 0.6 % (0.0-10.0); %Lymphocytes 22.8 % (21.0-51.0); %Neutrophils 67.5 % (42.0-75.0); Hemoglobin 12.4 g/dL (12.0-16.0); Mean Corpuscular HGB CONC 33.3 g/dL (32.0-36.0); Mean Corpuscular Hemoglobin 29.1 pg (27.0-31.0); Mean Corpuscular Volume 87.4 fl (78.0-98.0); Mean Platelet Volume 6.5 fL (7.4-10.4); Platelet Count 484 10x3/uL (130-400); RBC Distribution Width 13.3 % (11.5-14.5); Red Blood Cell (RBC) Count 4.25 mill/uL (4.20-5.40); White Blood Cell (WBC) Count 11.9 10x3/uL (4.8-10.8)
[2022-03-23 06:39] LABS: Anion Gap 13 mmol/L (10-20); BUN (Urea Nitrogen) 12 mg/dL (9.8-20.1); Calc. Creatinine Clearance 75 mL/min (70-130); Calcium 8.9 mg/dL (7.8-10.44); Carbon Dioxide 22 mmol/L (23-31); Chloride 101 mmol/L (98-107); Estimated GFR 96; Glucose 85 mg/dL (83-110); Potassium 3.5 mmol/L (3.5-5.1); Sodium 132 mmol/L (136-145)
[2022-03-23] MEDS: Cholecalciferol 1,000 UNITS (25 MCG) TAB PO SCH (08:13)
[2022-03-23] MEDS: Cyanocobalamin (Vitamin B-12) 1,000 MCG TAB PO SCH (08:13)
[2022-03-23] MEDS: Azithromycin 500 MG in Sodium Chloride 0.9% 250 ML 250 ML IVPB SCH (08:13)
[2022-03-23] MEDS: Dexamethasone 4 mg/ml Vial SLOW IVP SCH (08:14)
[2022-03-23] MEDS: Famotidine 20 MG TAB PO SCH (08:14)
[2022-03-23] MEDS: traMADol HCl 50 MG TAB PO PRN (08:14)
[2022-03-23] MEDS ORDERED: Senokot S 8.6-50 MG TAB PO PRN (08:30)
[2022-03-23] MEDS ORDERED: Polyethylene Glycol 3350 17 GM Packet PO PRN (14:05)
[2022-03-23] MEDS: tiZANidine HCl 4 MG TAB PO SCH (20:00)
[2022-03-23] MEDS: Nicotine 21 MG PATCH TD SCH (20:00)
[2022-03-23] MEDS ORDERED: Ibuprofen 600 MG TAB PO SCH (20:00)
[2022-03-23] MEDS: cefTRIAXone\\ROCEPHIN 1 GM in Sodium Chloride 0.9% 100 ML IVPB SCH (20:01)
[2022-03-23] MEDS: Amlodipine 10 MG TAB PO SCH (20:03)
[2022-03-24] MEDS: traMADol HCl 50 MG TAB PO PRN ×3 (02:58→21:40)
[2022-03-24] MEDS: Lorazepam 0.5 MG TAB PO PRN ×2 (02:59→20:51)
[2022-03-24 05:37] LABS: #Basophils 0.1 thou/uL (0.0-0.2); #Eosinphils 0.1 thou/uL (0.0-0.7); #Lymphocytes 3.2 thou/uL (1.20-3.40); #Monocytes 1.3 thou/uL (0.11-0.59); #Neutrophils 8.8 thou/uL (1.40-6.50); %Basophils 0.5 % (0.0-1.0); %Eosinophils 0.4 % (0.0-10.0); %Lymphocytes 23.5 % (21.0-51.0); %Monocytes 9.9 % (0.0-10.0); %Neutrophils 65.6 % (42.0-75.0); Hemoglobin 13.1 g/dL (12.0-16.0); Mean Corpuscular HGB CONC 32.7 g/dL (32.0-36.0); Mean Corpuscular Hemoglobin 28.6 pg (27.0-31.0); Mean Corpuscular Volume 87.4 fl (78.0-98.0); Mean Platelet Volume 6.4 fL (7.4-10.4); Platelet Count 524 10x3/uL (130-400); RBC Distribution Width 13.3 % (11.5-14.5); Red Blood Cell (RBC) Count 4.57 mill/uL (4.20-5.40); White Blood Cell (WBC) Count 13.4 10x3/uL (4.8-10.8)
[2022-03-24 05:49] LABS: Anion Gap 12 mmol/L (10-20); BUN (Urea Nitrogen) 13 mg/dL (9.8-20.1); Calc. Creatinine Clearance 75 mL/min (70-130); Carbon Dioxide 22 mmol/L (23-31); Chloride 102 mmol/L (98-107); Potassium 3.8 mmol/L (3.5-5.1); Sodium 132 mmol/L (136-145)
[2022-03-24 05:50] LABS: Calcium 9.1 mg/dL (7.8-10.44); Estimated GFR 96; Glucose 89 mg/dL (83-110)
[2022-03-24] MEDS: Azithromycin 500 MG in Sodium Chloride 0.9% 250 ML 250 ML IVPB SCH (08:08)
[2022-03-24] MEDS ORDERED: Fentanyl 250 MCG/5 ML VIAL ONE (13:20)
[2022-03-24] MEDS ORDERED: SUGAMMADEX SODIUM 200 MG/2 ML VIAL ONE (13:20)
[2022-03-24] MEDS ORDERED: Dexamethasone 4 mg/ml Vial ONE (13:34)
[2022-03-24] MEDS ORDERED: Bupivacaine HCl 0.5%/Epinephrine 1:200,000/PF 30 ml Vial ONE (13:34)
[2022-03-24] MEDS ORDERED: Albuterol HFA (OR) 200 PUFF INH ONE (13:50)
[2022-03-24] MEDS ORDERED: NEOSTIGMINE 3 MG/3 ML SYR 3 MG/3 ML SYRINGE ONE (13:50)
[2022-03-24] MEDS ORDERED: Glycopyrrolate 0.2 MG/ML 5 ML SYRINGE ONE (13:50)
[2022-03-24] MEDS ORDERED: Lidocaine 1% PF 5 ML VIAL ONE (13:50)
[2022-03-24] MEDS ORDERED: Rocuronium Bromide 10 MG/ML (10ML VIAL) ONE (13:50)
[2022-03-24] MEDS ORDERED: PROPOFOL 200 MG/20 ML VIAL ONE (13:50)
[2022-03-24] MEDS ORDERED: Dexamethasone 20 MG/5 ML VIAL ONE (13:50)
[2022-03-24] MEDS ORDERED: PHENYLEPHRINE-NS 100 MCG/ML 10 ML SYRINGE ONE (13:50)
[2022-03-24] MEDS ORDERED: Ondansetron PF 4 MG/2 ML Vial ONE (13:50)
[2022-03-24] MEDS ORDERED: Ondansetron HCl/PF 4 MG/2 ML Vial IVP PRN (14:51)
[2022-03-24] MEDS ORDERED: Promethazine HCl 25 MG/ML VIAL IM PRN (14:51)
[2022-03-24] MEDS ORDERED: Fentanyl 100 MCG/2 ML VIAL ONE (15:01)
[2022-03-24] MEDS: Cyanocobalamin (Vitamin B-12) 1,000 MCG TAB PO SCH (16:38)
[2022-03-24] MEDS: Cholecalciferol 1,000 UNITS (25 MCG) TAB PO SCH (16:39)
[2022-03-24] MEDS: Famotidine 20 MG TAB PO SCH (16:39)
[2022-03-24] MEDS: Dexamethasone 4 mg/ml Vial SLOW IVP SCH (16:40)
[2022-03-24] MEDS: Nicotine 21 MG PATCH TD SCH (20:49)
[2022-03-24] MEDS: tiZANidine HCl 4 MG TAB PO SCH (20:50)
[2022-03-24] MEDS: Melatonin 3 MG TAB PO PRN (20:51)
[2022-03-24] MEDS: Amlodipine 10 MG TAB PO SCH (20:51)
[2022-03-24] MEDS: cefTRIAXone\\ROCEPHIN 1 GM in Sodium Chloride 0.9% 100 ML IVPB SCH (20:53)
[2022-03-25] MEDS: traMADol HCl 50 MG TAB PO PRN (04:53)
[2022-03-25 05:55] LABS: #Lymphocytes 2.2 thou/uL (1.20-3.40); #Monocytes 1.1 thou/uL (0.11-0.59); #Neutrophils 13.4 thou/uL (1.40-6.50); %Eosinophils 0.3 % (0.0-10.0); %Lymphocytes 13.3 % (21.0-51.0); %Monocytes 6.5 % (0.0-10.0); Hemoglobin 14.7 g/dL (12.0-16.0); Mean Corpuscular HGB CONC 32.2 g/dL (32.0-36.0); Mean Corpuscular Hemoglobin 28.4 pg (27.0-31.0); Mean Corpuscular Volume 88.2 fl (78.0-98.0); Mean Platelet Volume 6.7 fL (7.4-10.4); Platelet Count 543 10x3/uL (130-400); RBC Distribution Width 13.3 % (11.5-14.5); Red Blood Cell (RBC) Count 5.18 mill/uL (4.20-5.40); White Blood Cell (WBC) Count 16.7 10x3/uL (4.8-10.8)
[2022-03-25 06:11] LABS: Anion Gap 15 mmol/L (10-20); BUN (Urea Nitrogen) 14 mg/dL (9.8-20.1); Calc. Creatinine Clearance 68 mL/min (70-130); Calcium 9.6 mg/dL (7.8-10.44); Carbon Dioxide 21 mmol/L (23-31); Chloride 97 mmol/L (98-107); Estimated GFR 94; Glucose 95 mg/dL (83-110); Potassium 4.3 mmol/L (3.5-5.1); Sodium 129 mmol/L (136-145)
[2022-03-25] MEDS: Azithromycin 500 MG in Sodium Chloride 0.9% 250 ML 250 ML IVPB SCH (09:17)
[2022-03-25] MEDS: Cyanocobalamin (Vitamin B-12) 1,000 MCG TAB PO SCH (09:17)
[2022-03-25] MEDS: Cholecalciferol 1,000 UNITS (25 MCG) TAB PO SCH (09:17)
[2022-03-25] MEDS: Famotidine 20 MG TAB PO SCH (09:18)
[2022-03-25] MEDS: Dexamethasone 4 mg/ml Vial SLOW IVP SCH (09:18)
[2022-03-25] MEDS: Cefuroxime 250 MG TAB PO SCH (21:15)
[2022-03-25] MEDS: tiZANidine HCl 4 MG TAB PO SCH (21:16)
[2022-03-25] MEDS: Acetaminophen 325 MG TAB PO PRN (21:17)
[2022-03-25] MEDS: Amlodipine 10 MG TAB PO SCH (21:18)
[2022-03-25] MEDS: Nicotine 21 MG PATCH TD SCH (21:34)
[2022-03-26] MEDS: Lorazepam 0.5 MG TAB PO PRN ×2 (00:10→20:28)
[2022-03-26] MEDS: Famotidine 20 MG TAB PO SCH (09:03)
[2022-03-26] MEDS: Cefuroxime 250 MG TAB PO SCH ×2 (09:03→20:29)
[2022-03-26] MEDS: Acetaminophen 325 MG TAB PO PRN (09:03)
[2022-03-26] MEDS: Cholecalciferol 1,000 UNITS (25 MCG) TAB PO SCH (09:03)
[2022-03-26] MEDS: Cyanocobalamin (Vitamin B-12) 1,000 MCG TAB PO SCH (09:03)
[2022-03-26] MEDS: predniSONE 20 MG TAB PO SCH (09:03)
[2022-03-26 09:29] LABS: Chloride 98 mmol/L (98-107); Potassium 3.4 mmol/L (3.5-5.1); Sodium 130 mmol/L (136-145)
[2022-03-26 09:30] LABS: Calcium 9.6 mg/dL (7.8-10.44); Glucose 160 mg/dL (83-110)
[2022-03-26 09:32] LABS: Anion Gap 11 mmol/L (10-20); Carbon Dioxide 24 mmol/L (23-31)
[2022-03-26 09:33] LABS: Calc. Creatinine Clearance 60 mL/min (70-130); Estimated GFR 91
[2022-03-26 09:34] LABS: BUN (Urea Nitrogen) 16 mg/dL (9.8-20.1)
[2022-03-26] MEDS ORDERED: Potassium Chloride 20 MEQ TAB PO SCH (13:15)
[2022-03-26] MEDS ORDERED: Iopamidol-370 76% 500 ML 1 ML ONE (15:33)
[2022-03-26] MEDS: tiZANidine HCl 4 MG TAB PO SCH (20:24)
[2022-03-26] MEDS: Amlodipine 10 MG TAB PO SCH (20:30)
[2022-03-26] MEDS: Nicotine 21 MG PATCH TD SCH (20:31)
[2022-03-26] MEDS: traMADol HCl 50 MG TAB PO PRN (21:14)
[2022-03-27] MEDS: Lorazepam 0.5 MG TAB PO PRN (08:35)
[2022-03-27] MEDS: predniSONE 20 MG TAB PO SCH (10:18)
[2022-03-27] MEDS: Famotidine 20 MG TAB PO SCH (10:18)
[2022-03-27] MEDS: Cyanocobalamin (Vitamin B-12) 1,000 MCG TAB PO SCH (10:18)
[2022-03-27] MEDS: Cholecalciferol 1,000 UNITS (25 MCG) TAB PO SCH (10:18)
[2022-03-27] MEDS: Cefuroxime 250 MG TAB PO SCH (10:19)
[2022-03-27 15:08] VITALS: BP 166/85; TEMP 98.1
[2022-03-27] MEDS ORDERED: Magnevist 469MG/ML 20 ML VIAL ONE (15:39)
== END 2022-03-27 17:10 | disposition home or self-care (01) | DRG 166 ==
LOC: ERS 18:11 → ERHOLD 21:11 → MSONC 03-21 09:24
PROVIDERS: ADMIT Student in an Organized Health Care Education/Training Program; ATTEND Internal Medicine
PROC: 07B73ZX Excision of Thorax Lymphatic, Percutaneous Approach, Diagnostic (ICD-10-PCS; principal; 2022-03-24)
DX: C78.1 Secondary malignant neoplasm of mediastinum (principal); J18.9 Pneumonia, unspecified organism; C34.92 Malignant neoplasm of unspecified part of left bronchus or lung; E87.1 Hypo-osmolality and hyponatremia; J44.1 Chronic obstructive pulmonary disease with (acute) exacerbation; J44.0 Chronic obstructive pulmonary disease with (acute) lower respiratory infection; C79.31 Secondary malignant neoplasm of brain; M06.9 Rheumatoid arthritis, unspecified; Z51.5 Encounter for palliative care; E03.9 Hypothyroidism, unspecified; F17.210 Nicotine dependence, cigarettes, uncomplicated; I10 Essential (primary) hypertension; Z90.710 Acquired absence of both cervix and uterus; Z90.49 Acquired absence of other specified parts of digestive tract
CPT/HCPCS: 36415; 70553; 71045; 71275; 74177; 80048; 80053; 82550; 83605; 83690; 83880; 84300; 84484; 85025; 85379; 87040; 87811; 88305; 88341; 88342; 93005; 94640; 96365; 96367; 96375; A9579; J0456; J0696; J1100; J1650; J2060; J2405; J2704; J3010; J3475; J3490; J7050; J7512; J7620; Q9967

== ENCOUNTER 2022-04-20 13:13 | Emergency (ER) | payer MEDICARE, OTHER ==
[~2022-04-20 13:13] MED LIST changes: +Iopamidol 370 76% 100 ML VIAL ONE; -Iopamidol-370 76% 500 ML 1 ML ONE
[2022-04-20 13:55] LABS: #Lymphocytes 1.6 thou/uL (1.20-3.40); #Monocytes 0.7 thou/uL (0.11-0.59); #Neutrophils 8.7 thou/uL (1.40-6.50); %Basophils 0.2 % (0.0-1.0); %Eosinophils 0.3 % (0.0-10.0); %Lymphocytes 14.8 % (21.0-51.0); %Monocytes 6.1 % (0.0-10.0); %Neutrophils 78.7 % (42.0-75.0); Hemoglobin 12.7 g/dL (12.0-16.0); Mean Corpuscular HGB CONC 33.5 g/dL (32.0-36.0); Mean Corpuscular Hemoglobin 28.8 pg (27.0-31.0); Mean Platelet Volume 6.6 fL (7.4-10.4); Platelet Count 556 10x3/uL (130-400); White Blood Cell (WBC) Count 11.1 10x3/uL (4.8-10.8)
[2022-04-20 14:17] LABS: ALT (SGPT) 21 U/L (8-55); AST (SGOT) 17 U/L (5-34); Albumin 3.8 g/dL (3.4-4.8); Alkaline Phosphatase 183 U/L (40-110); Anion Gap 15 mmol/L (10-20); BUN (Urea Nitrogen) 10 mg/dL (9.8-20.1); Bilirubin, Total 0.4 mg/dL (0.2-1.2); Calc. Creatinine Clearance 0 mL/min (70-130); Calcium 9.4 mg/dL (7.8-10.44); Carbon Dioxide 23 mmol/L (23-31); Chloride 93 mmol/L (98-107); Estimated GFR 93; Globulin 2.9 g/dL (2.4-3.5); Glucose 103 mg/dL (83-110); Lipase 19 U/L (8-78); Potassium 4.6 mmol/L (3.5-5.1); Protein, Total 6.7 g/dL (5.8-8.1); Sodium 126 mmol/L (136-145)
[2022-04-20 17:38] LABS: Bilirubin Negative (Negative); Blood, Urine Negative (Negative); Clarity Clear (Clear); Glucose, Urine (Dipstick) Normal (Negative); Ketone, Urine Negative (Negative); Leukocyte Negative Leu/uL (Negative); Nitrite Negative (Negative); Protein, Urine (Dipstick) Negative (Neg-Trace); Specific Gravity, Urine 1.039 (1.002-1.036); Urobilinogen Normal mg/dL (Less than 2); pH, Urine 7.5 (5.0-9.0)
[2022-04-20] MEDS ORDERED: Ondansetron PF 4 MG/2 ML Vial ONE (17:46)
[2022-04-20] MEDS ORDERED: Pantoprazole 40 MG VIAL ONE (17:46)
== END 2022-04-20 20:23 | disposition home or self-care (01) ==
LOC: ERS 13:13
DX: A08.4 Viral intestinal infection, unspecified (principal); E86.0 Dehydration; I10 Essential (primary) hypertension; C79.51 Secondary malignant neoplasm of bone; D72.829 Elevated white blood cell count, unspecified; F17.210 Nicotine dependence, cigarettes, uncomplicated
CPT/HCPCS: 36415; 74177; 80053; 81003; 83690; 84484; 85025; 93005; 96361; 96374; 96375; C9113; J2405

== ENCOUNTER → 2022-04-22 | Outpatient (CLI) | payer MEDICARE, OTHER | LOC: PET 11:00 | PROVIDERS: ATTEND Radiology Radiation Oncology | DX: C34.2 Malignant neoplasm of middle lobe, bronchus or lung (principal); C79.31 Secondary malignant neoplasm of brain; E27.8 Other specified disorders of adrenal gland | CPT/HCPCS: 78815; A9552 ==

== ENCOUNTER 2022-06-05 14:12 | Outpatient (CLI) | payer MEDICARE, OTHER | END 2022-06-05 14:13 | disposition home or self-care (01) | LOC: CT 14:12 | PROVIDERS: ATTEND Internal Medicine | DX: R19.7 Diarrhea, unspecified (principal); R10.9 Unspecified abdominal pain; R11.0 Nausea; C34.90 Malignant neoplasm of unspecified part of unspecified bronchus or lung; E27.9 Disorder of adrenal gland, unspecified | CPT/HCPCS: 74177; Q9967 ==

== ENCOUNTER 2022-06-25 11:00 | Outpatient (CLI) | payer MEDICARE, OTHER | END 2022-06-25 11:01 | disposition home or self-care (01) | LOC: PET 11:00 | PROVIDERS: ATTEND Internal Medicine | DX: C34.82 Malignant neoplasm of overlapping sites of left bronchus and lung (principal); C77.1 Secondary and unspecified malignant neoplasm of intrathoracic lymph nodes; R94.8 Abnormal results of function studies of other organs and systems; C71.9 Malignant neoplasm of brain, unspecified; I67.82 Cerebral ischemia; M89.8X8 Other specified disorders of bone, other site | CPT/HCPCS: 70553; 78815; A9552 ==

== ENCOUNTER 2022-06-25 12:38 | Outpatient (CLI) | payer MEDICARE, OTHER | END 2022-06-25 12:39 | disposition home or self-care (01) | LOC: SCSMRI 12:38 | PROVIDERS: ATTEND Internal Medicine | DX: C34.82 Malignant neoplasm of overlapping sites of left bronchus and lung (principal); C71.9 Malignant neoplasm of brain, unspecified; I67.82 Cerebral ischemia; M89.8X8 Other specified disorders of bone, other site | CPT/HCPCS: 70553 ==

== ENCOUNTER 2022-08-24 13:57 | Inpatient (IN) | payer MEDICARE, OTHER ==
[~2022-08-24 13:57] MED LIST changes: -Iopamidol 370 76% 100 ML VIAL ONE; +Iopamidol-370 76% 500 ML MDV (1 ML CHARGE) ONE
[2022-08-24 16:00] LABS: #Monocytes 0.5 thou/uL (0.11-0.59); #Neutrophils 7.5 thou/uL (1.40-6.50); %Basophils 0.2 % (0.0-1.0); %Eosinophils 0.1 % (0.0-10.0); %Lymphocytes 12.2 % (21.0-51.0); %Neutrophils 82.3 % (42.0-75.0); Hemoglobin 9.6 g/dL (12.0-16.0); Mean Corpuscular HGB CONC 33.2 g/dL (32.0-36.0); Mean Corpuscular Hemoglobin 27.1 pg (27.0-31.0); Mean Corpuscular Volume 81.6 fl (78.0-98.0); Mean Platelet Volume 9.7 fL (7.4-10.4); Platelet Count 362 10x3/uL (130-400); RBC Distribution Width 15.8 % (11.5-14.5); Red Blood Cell (RBC) Count 3.54 mill/uL (4.20-5.40); White Blood Cell (WBC) Count 9.1 10x3/uL (4.8-10.8)
[2022-08-24 16:22] LABS: ALT (SGPT) 10 U/L (8-55); AST (SGOT) 22 U/L (5-34); Albumin 2.7 g/dL (3.4-4.8); Alkaline Phosphatase 259 U/L (40-110); Anion Gap 17 mmol/L (10-20); BUN (Urea Nitrogen) 7 mg/dL (9.8-20.1); Bilirubin, Total 0.2 mg/dL (0.2-1.2); Calc. Creatinine Clearance 0 mL/min (70-130); Calcium 8.7 mg/dL (7.8-10.44); Carbon Dioxide 17 mmol/L (23-31); Chloride 91 mmol/L (98-107); Estimated GFR 92; Globulin 3.1 g/dL (2.4-3.5); Glucose 71 mg/dL (83-110); Magnesium 1.2 mg/dL (1.6-2.6); Potassium 2.8 mmol/L (3.5-5.1); Protein, Total 5.8 g/dL (5.8-8.1); Sodium 122 mmol/L (136-145)
[2022-08-24] MEDS ORDERED: Potassium Chloride 20 MEQ TAB ONE (17:43)
[2022-08-24] MEDS ORDERED: Morphine 4 MG/ML VIAL ONE ×2 (17:43→23:02)
[2022-08-24] MEDS ORDERED: Magnesium 2 GM/50 ML BAG (IN WATER) ONE (17:43)
[2022-08-24] MEDS ORDERED: Ondansetron PF 4 MG/2 ML Vial ONE (17:54)
[2022-08-24] MEDS ORDERED: traMADol HCl 50 MG TAB PO PRN (18:56)
[2022-08-24] MEDS ORDERED: Lorazepam 0.5 MG TAB PO PRN (18:56)
[2022-08-24] MEDS ORDERED: Ipratropium/Albuterol 3 ML NEB EZPAP PRN (18:58)
[2022-08-24] MEDS ORDERED: Acetaminophen 325 MG TAB PO PRN (18:59)
[2022-08-24] MEDS ORDERED: Nicotine 14 MG PATCH TD SCH (19:00)
[2022-08-24] MEDS ORDERED: Sodium Chloride 0.9% 1,000 ML IV SCH (19:00)
[2022-08-24 19:50] LABS: Anion Gap 17 mmol/L (10-20); BUN (Urea Nitrogen) 6 mg/dL (9.8-20.1); Calc. Creatinine Clearance 0 mL/min (70-130); Calcium 8.5 mg/dL (7.8-10.44); Carbon Dioxide 16 mmol/L (23-31); Chloride 93 mmol/L (98-107); Estimated GFR 93; Glucose 65 mg/dL (83-110); Magnesium 3.4 mg/dL (1.6-2.6); Phosphorus 2.6 mg/dL (2.3-4.7); Potassium 2.8 mmol/L (3.5-5.1); Sodium 123 mmol/L (136-145)
[2022-08-24] MEDS: Transdermal Patch Removal TOP SCH (20:15)
[2022-08-24] MEDS: Nicotine 14 MG PATCH TD SCH (20:15)
[2022-08-24] MEDS ORDERED: Cefepime 2 GM VIAL ONE (21:55)
[2022-08-24] MEDS: Cefepime 2 GM in Sodium Chloride 0.9% 100 ML IVPB SCH (22:00)
[2022-08-24] MEDS ORDERED: Dextrose 5% in Water 1,000 ML IV PRN (22:12)
[2022-08-24] MEDS ORDERED: Glucagon 1 MG/ML KIT IM PRN (22:12)
[2022-08-24] MEDS ORDERED: Dextrose 50% Abboject 50 ML SYRINGE SLOW IVP PRN (22:12)
[2022-08-24] MEDS: Potassium Chloride 20 MEQ in Premix Bag 1 BAG IVPB SCH (22:44)
[2022-08-24] MEDS ORDERED: Potassium Chloride 20 MEQ/100 ML PREMIX BAG ONE (23:01)
[2022-08-24] MEDS ORDERED: Dextrose 50% Abboject 50 ML SYRINGE ONE (23:03)
[2022-08-24 23:51] LABS: Anion Gap 16 mmol/L (10-20); BUN (Urea Nitrogen) 6 mg/dL (9.8-20.1); Calc. Creatinine Clearance 0 mL/min (70-130); Calcium 8.5 mg/dL (7.8-10.44); Carbon Dioxide 18 mmol/L (23-31); Chloride 95 mmol/L (98-107); Estimated GFR 92; Glucose 69 mg/dL (83-110); Potassium 3.8 mmol/L (3.5-5.1); Sodium 125 mmol/L (136-145)
[2022-08-25 01:50] LABS: Anion Gap 10 mmol/L (10-20); BUN (Urea Nitrogen) 6 mg/dL (9.8-20.1); Calc. Creatinine Clearance 0 mL/min (70-130); Calcium 8.5 mg/dL (7.8-10.44); Carbon Dioxide 22 mmol/L (23-31); Chloride 94 mmol/L (98-107); Estimated GFR 92; Glucose 114 mg/dL (83-110); Magnesium 1.5 mg/dL (1.6-2.6); Potassium 2.9 mmol/L (3.5-5.1); Sodium 123 mmol/L (136-145)
[2022-08-25 01:51] VITALS: BMI 14.7
[2022-08-25] MEDS: Potassium Chloride 20 MEQ in Premix Bag 1 BAG IVPB SCH ×2 (02:08→20:52)
[2022-08-25] MEDS: Morphine 4 MG/ML VIAL SLOW IVP PRN ×4 (03:29→20:48)
[2022-08-25 04:09] LABS: RBC/HPF 0-3 HPF (0-3); Squamous Epithelial 0-3 HPF (0-3); WBC/HPF 0-3 HPF (0-3)
[2022-08-25 04:10] LABS: Bacteria/HPF 1+ HPF (None Seen)
[2022-08-25 04:30] LABS: Legionella Urinary Ag Negative (Negative)
[2022-08-25 04:32] LABS: #Monocytes 0.3 thou/uL (0.11-0.59); #Neutrophils 5.6 thou/uL (1.40-6.50); %Basophils 0.2 % (0.0-1.0); %Eosinophils 0.2 % (0.0-10.0); %Lymphocytes 11.3 % (21.0-51.0); %Monocytes 3.9 % (0.0-10.0); %Neutrophils 84.1 % (42.0-75.0); Hemoglobin 9.7 g/dL (12.0-16.0); Mean Corpuscular HGB CONC 32.6 g/dL (32.0-36.0); Mean Corpuscular Hemoglobin 26.4 pg (27.0-31.0); Mean Corpuscular Volume 81.2 fl (78.0-98.0); Mean Platelet Volume 8.7 fL (7.4-10.4); Platelet Count 286 10x3/uL (130-400); RBC Distribution Width 15.6 % (11.5-14.5); Red Blood Cell (RBC) Count 3.67 mill/uL (4.20-5.40); White Blood Cell (WBC) Count 6.6 10x3/uL (4.8-10.8)
[2022-08-25 04:58] LABS: Anion Gap 12 mmol/L (10-20); BUN (Urea Nitrogen) 5 mg/dL (9.8-20.1); Calc. Creatinine Clearance 56 mL/min (70-130); Calcium 8.5 mg/dL (7.8-10.44); Carbon Dioxide 21 mmol/L (23-31); Chloride 96 mmol/L (98-107); Estimated GFR 94; Glucose 67 mg/dL (83-110); Magnesium 1.4 mg/dL (1.6-2.6); Potassium 3.6 mmol/L (3.5-5.1); Sodium 125 mmol/L (136-145)
[2022-08-25] MEDS ORDERED: Magnesium Sulfate In Water 4 GM in Premix Bag 1 BAG IVPB SCH (07:15)
[2022-08-25] MEDS: Cefepime 2 GM in Sodium Chloride 0.9% 100 ML IVPB SCH ×2 (09:05→22:03)
[2022-08-25] MEDS ORDERED: Sodium Bicarbonate 150 MEQ in Sodium Chloride 0.45% 1,000 ML IV SCH (11:00)
[2022-08-25] MEDS ORDERED: Acetaminophen 650 MG Suppository PR PRN (12:00)
[2022-08-25] MEDS ORDERED: Acetaminophen 650 MG Suppository PR SCH (12:00)
[2022-08-25] MEDS ORDERED: Morphine 4 MG/ML VIAL SLOW IVP PRN (12:03)
[2022-08-25] MEDS ORDERED: Morphine 2 MG/ML VIAL SLOW IVP PRN (12:33)
[2022-08-25] MEDS ORDERED: Pantoprazole 40 MG VIAL IVP SCH (12:45)
[2022-08-25 14:37] LABS: Anion Gap 12 mmol/L (10-20); BUN (Urea Nitrogen) 6 mg/dL (9.8-20.1); Calc. Creatinine Clearance 66 mL/min (70-130); Calcium 8.3 mg/dL (7.8-10.44); Carbon Dioxide 21 mmol/L (23-31); Chloride 96 mmol/L (98-107); Estimated GFR 98; Glucose 67 mg/dL (83-110); Sodium 126 mmol/L (136-145)
[2022-08-25] MEDS: fentaNYL 75 mcg/hour Patch TD SCH (14:56)
[2022-08-25] MEDS ORDERED: Dextrose 5 % And 0.9 % NaCl 1,000 ML IV SCH (15:45)
[2022-08-25] MEDS ORDERED: Dextrose 10% in Water 1,000 ML IV SCH (16:00)
[2022-08-25 16:59] LABS: Phosphorus 2.4 mg/dL (2.3-4.7)
[2022-08-25] MEDS: Ketorolac Tromethamine 30 MG/ML VIAL IVP SCH (17:17)
[2022-08-25] MEDS: Diclofenac 1% 100 GM GEL TP SCH ×2 (17:18→21:00)
[2022-08-25 17:24] LABS: Anion Gap 12 mmol/L (10-20); BUN (Urea Nitrogen) 6 mg/dL (9.8-20.1); Calc. Creatinine Clearance 61 mL/min (70-130); Calcium 8.4 mg/dL (7.8-10.44); Carbon Dioxide 20 mmol/L (23-31); Chloride 96 mmol/L (98-107); Estimated GFR 96; Glucose 60 mg/dL (83-110); Potassium 3.1 mmol/L (3.5-5.1); Sodium 125 mmol/L (136-145)
[2022-08-25] MEDS ORDERED: Potassium Chloride 40 MEQ in Premix Bag 1 BAG IVPB STA (18:15)
[2022-08-25 20:26] LABS: Anion Gap 14 mmol/L (10-20); BUN (Urea Nitrogen) 7 mg/dL (9.8-20.1); Calc. Creatinine Clearance 61 mL/min (70-130); Calcium 8.2 mg/dL (7.8-10.44); Carbon Dioxide 17 mmol/L (23-31); Chloride 99 mmol/L (98-107); Estimated GFR 96; Glucose 69 mg/dL (83-110); Potassium 3.6 mmol/L (3.5-5.1); Sodium 126 mmol/L (136-145)
[2022-08-25] MEDS: Nicotine 14 MG PATCH TD SCH (20:59)
[2022-08-25] MEDS: Transdermal Patch Removal TOP SCH (20:59)
[2022-08-26] MEDS: Potassium Chloride 20 MEQ in Premix Bag 1 BAG IVPB SCH (00:37)
[2022-08-26] MEDS: Ketorolac Tromethamine 30 MG/ML VIAL IVP SCH ×5 (03:47→17:52)
[2022-08-26 05:40] LABS: Phosphorus 2.3 mg/dL (2.3-4.7)
[2022-08-26 05:43] LABS: Albumin 2.3 g/dL (3.4-4.8); Anion Gap 14 mmol/L (10-20); BUN (Urea Nitrogen) 7 mg/dL (9.8-20.1); BUN/Creatinine Ratio 12.73; Calc. Creatinine Clearance 60 mL/min (70-130); Calcium 7.7 mg/dL (7.8-10.44); Carbon Dioxide 22 mmol/L (23-31); Chloride 97 mmol/L (98-107); Estimated GFR 96; Glucose 78 mg/dL (83-110); Magnesium 1.7 mg/dL (1.6-2.6); Phosphorus 2.3 mg/dL (2.3-4.7); Potassium 3.5 mmol/L (3.5-5.1); Sodium 129 mmol/L (136-145)
[2022-08-26] MEDS ORDERED: Magnesium Sulfate In Water 4 GM in Premix Bag 1 BAG IVPB SCH (06:45)
[2022-08-26] MEDS ORDERED: Potassium Chloride 40 MEQ in Premix Bag 1 BAG IVPB SCH (06:45)
[2022-08-26] MEDS: Cefepime 2 GM in Sodium Chloride 0.9% 100 ML IVPB SCH (09:37)
[2022-08-26] MEDS: Pantoprazole 40 MG VIAL IVP SCH (09:38)
[2022-08-26] MEDS: Diclofenac 1% 100 GM GEL TP SCH ×4 (09:55→20:42)
[2022-08-26] MEDS: Potassium Chloride 40 MEQ in Dextrose 5%-Lactated Ringers 1,000 ML IV SCH (11:50)
[2022-08-26] MEDS ORDERED: Thiamine 100 MG TAB PO SCH (12:11)
[2022-08-26] MEDS ORDERED: Piperacillin/Tazobactam 3.375 GM in Sodium Chloride 0.9% 100 ML IVPB SCH (13:00)
[2022-08-26 13:20] LABS: #Monocytes 0.3 thou/uL (0.11-0.59); #Neutrophils 5.3 thou/uL (1.40-6.50); %Basophils 0.3 % (0.0-1.0); %Eosinophils 0.6 % (0.0-10.0); %Lymphocytes 11.1 % (21.0-51.0); %Monocytes 4.4 % (0.0-10.0); %Neutrophils 83.1 % (42.0-75.0); Hemoglobin 7.9 g/dL (12.0-16.0); Mean Corpuscular HGB CONC 31.9 g/dL (32.0-36.0); Mean Corpuscular Volume 81.6 fl (78.0-98.0); Mean Platelet Volume 9.3 fL (7.4-10.4); Platelet Count 248 10x3/uL (130-400); RBC Distribution Width 15.7 % (11.5-14.5); Red Blood Cell (RBC) Count 3.04 mill/uL (4.20-5.40); White Blood Cell (WBC) Count 6.4 10x3/uL (4.8-10.8)
[2022-08-26 14:11] LABS: Bacteria/HPF None Seen HPF (None Seen); Bilirubin Negative (Negative); Blood, Urine Trace (Negative); CAUTI Indications for Culture Fever or rigors; Clarity Clear (Clear); Glucose, Urine (Dipstick) Normal (Negative); Ketone, Urine 10 mg/dL (Negative); Leukocyte Negative Leu/uL (Negative); Nitrite Negative (Negative); Protein, Urine (Dipstick) 30 mg/dL (Neg-Trace); RBC/HPF 0-3 HPF (0-3); Squamous Epithelial None Seen HPF (0-3); Urobilinogen Normal mg/dL (Less than 2); WBC/HPF 0-3 HPF (0-3)
[2022-08-26 14:13] LABS: Urine Culture Reflex No No
[2022-08-26 14:35] LABS: Strep pneumo Urine Ag NEGATIVE (NEGATIVE)
[2022-08-26 14:44] LABS: SARS-CoV-2 NAA Rapid Test Not Detected (NotDetected)
[2022-08-26] MEDS: Piperacillin/Tazobactam 3.375 GM in Sodium Chloride 0.9% 100 ML IVPB SCH (17:52)
[2022-08-26] MEDS: Morphine 2 MG/ML VIAL SLOW IVP PRN (19:47)
[2022-08-26] MEDS: Ondansetron PF 4 MG/2 ML Vial IVP PRN (19:48)
[2022-08-26] MEDS: Transdermal Patch Removal TOP SCH (20:53)
[2022-08-26] MEDS: Nicotine 14 MG PATCH TD SCH (20:54)
[2022-08-27] MEDS: Piperacillin/Tazobactam 3.375 GM in Sodium Chloride 0.9% 100 ML IVPB SCH ×4 (00:32→23:49)
[2022-08-27] MEDS: Ketorolac Tromethamine 30 MG/ML VIAL IVP SCH ×5 (00:32→23:50)
[2022-08-27 05:05] LABS: #Monocytes 0.1 thou/uL (0.11-0.59); #Neutrophils 4.7 thou/uL (1.40-6.50); %Basophils 0.2 % (0.0-1.0); %Eosinophils 0.7 % (0.0-10.0); %Lymphocytes 9.7 % (21.0-51.0); %Monocytes 2.6 % (0.0-10.0); %Neutrophils 86.6 % (42.0-75.0); Hemoglobin 7.6 g/dL (12.0-16.0); Mean Corpuscular HGB CONC 31.4 g/dL (32.0-36.0); Mean Corpuscular Hemoglobin 25.6 pg (27.0-31.0); Mean Corpuscular Volume 81.5 fl (78.0-98.0); Platelet Count 215 10x3/uL (130-400); RBC Distribution Width 15.5 % (11.5-14.5); Red Blood Cell (RBC) Count 2.97 mill/uL (4.20-5.40); White Blood Cell (WBC) Count 5.5 10x3/uL (4.8-10.8)
[2022-08-27 05:24] LABS: Anion Gap 10 mmol/L (10-20); BUN (Urea Nitrogen) 9 mg/dL (9.8-20.1); Calc. Creatinine Clearance 57 mL/min (70-130); Calcium 7.9 mg/dL (7.8-10.44); Carbon Dioxide 25 mmol/L (23-31); Chloride 100 mmol/L (98-107); Estimated GFR 95; Glucose 93 mg/dL (83-110); Phosphorus 1.9 mg/dL (2.3-4.7); Potassium 3.6 mmol/L (3.5-5.1); Sodium 131 mmol/L (136-145)
[2022-08-27] MEDS: Potassium Chloride 40 MEQ in Dextrose 5%-Lactated Ringers 1,000 ML IV SCH ×3 (05:36→23:54)
[2022-08-27] MEDS ORDERED: Potassium Phosphate 30 MMOL in Sodium Chloride 0.9% 250 ML 250 ML IVPB SCH (08:00)
[2022-08-27] MEDS ORDERED: Thiamine 100 MG TAB PO SCH (09:00)
[2022-08-27] MEDS: Albumin 25% 25 GM/100 ML BOT IVPB SCH ×2 (09:30→16:21)
[2022-08-27] MEDS: Pantoprazole 40 MG VIAL IVP SCH (09:31)
[2022-08-27] MEDS: Diclofenac 1% 100 GM GEL TP SCH ×5 (09:31→22:05)
[2022-08-27] MEDS: Ondansetron PF 4 MG/2 ML Vial IVP PRN (19:57)
[2022-08-27] MEDS: Transdermal Patch Removal TOP SCH (20:49)
[2022-08-27] MEDS: Nicotine 14 MG PATCH TD SCH (20:49)
[2022-08-28] MEDS: Morphine 2 MG/ML VIAL SLOW IVP PRN (02:44)
[2022-08-28] MEDS: Potassium Chloride 40 MEQ in Dextrose 5%-Lactated Ringers 1,000 ML IV SCH (02:47)
[2022-08-28] MEDS: Piperacillin/Tazobactam 3.375 GM in Sodium Chloride 0.9% 100 ML IVPB SCH ×2 (05:54→12:35)
[2022-08-28] MEDS: Ketorolac Tromethamine 30 MG/ML VIAL IVP SCH ×3 (05:54→18:15)
[2022-08-28] MEDS: Ondansetron PF 4 MG/2 ML Vial IVP PRN (07:37)
[2022-08-28] MEDS: Diclofenac 1% 100 GM GEL TP SCH ×4 (09:00→20:26)
[2022-08-28 09:38] LABS: #Eosinphils 0.1 thou/uL (0.0-0.7); #Monocytes 0.2 thou/uL (0.11-0.59); #Neutrophils 4.6 thou/uL (1.40-6.50); %Basophils 0.2 % (0.0-1.0); %Eosinophils 1.5 % (0.0-10.0); %Lymphocytes 11.8 % (21.0-51.0); %Monocytes 2.7 % (0.0-10.0); %Neutrophils 83.3 % (42.0-75.0); Hemoglobin 7.3 g/dL (12.0-16.0); Mean Corpuscular HGB CONC 31.6 g/dL (32.0-36.0); Mean Corpuscular Hemoglobin 26.3 pg (27.0-31.0); Mean Corpuscular Volume 83.1 fl (78.0-98.0); Mean Platelet Volume 9.3 fL (7.4-10.4); Platelet Count 205 10x3/uL (130-400); RBC Distribution Width 15.7 % (11.5-14.5); Red Blood Cell (RBC) Count 2.78 mill/uL (4.20-5.40); White Blood Cell (WBC) Count 5.5 10x3/uL (4.8-10.8)
[2022-08-28 11:00] LABS: Anion Gap 11 mmol/L (10-20); BUN (Urea Nitrogen) 5 mg/dL (9.8-20.1); Calc. Creatinine Clearance 60 mL/min (70-130); Calcium 8.1 mg/dL (7.8-10.44); Carbon Dioxide 24 mmol/L (23-31); Chloride 102 mmol/L (98-107); Estimated GFR 96; Glucose 87 mg/dL (83-110); Magnesium 1.7 mg/dL (1.6-2.6); Phosphorus 3.9 mg/dL (2.3-4.7); Potassium 4.3 mmol/L (3.5-5.1); Sodium 133 mmol/L (136-145)
[2022-08-28] MEDS: Pantoprazole 40 MG VIAL IVP SCH (12:35)
[2022-08-28] MEDS ORDERED: Lorazepam 2 MG/ML VIAL SLOW IVP PRN (15:58)
[2022-08-28] MEDS: fentaNYL 75 mcg/hour Patch TD SCH (18:30)
[2022-08-28] MEDS: cefTRIAXone\\ROCEPHIN 2 GM in Sodium Chloride 0.9% 100 ML IVPB SCH (20:19)
[2022-08-28] MEDS: Nicotine 14 MG PATCH TD SCH (20:20)
[2022-08-28] MEDS: Transdermal Patch Removal TOP SCH (20:20)
[2022-08-28 22:12] LABS: Mycoplasma pneumoniae IgG AB Less than 100 U/mL (0-99); Mycoplasma pneumoniae IgM AB Less than 770 U/mL (0-769)
[2022-08-29] MEDS: Ketorolac Tromethamine 30 MG/ML VIAL IVP SCH ×5 (00:10→22:47)
[2022-08-29] MEDS: Morphine 2 MG/ML VIAL SLOW IVP PRN ×2 (03:51→15:09)
[2022-08-29] MEDS: Diclofenac 1% 100 GM GEL TP SCH ×4 (08:26→22:46)
[2022-08-29] MEDS ORDERED: Dextrose 5%-Lactated Ringers 1,000 ML IV SCH (11:45)
[2022-08-29] MEDS: Potassium Chloride 40 MEQ in Dextrose 5%-Lactated Ringers 1,000 ML IV SCH (12:15)
[2022-08-29] MEDS ORDERED: oxyCODONE 5 MG TAB PO PRN (13:51)
[2022-08-29] MEDS: Transdermal Patch Removal TOP SCH (22:45)
[2022-08-29] MEDS: cefTRIAXone\\ROCEPHIN 2 GM in Sodium Chloride 0.9% 100 ML IVPB SCH (22:45)
[2022-08-30] MEDS: Potassium Chloride 40 MEQ in Dextrose 5%-Lactated Ringers 1,000 ML IV SCH ×2 (02:16→16:51)
[2022-08-30] MEDS: Morphine 2 MG/ML VIAL SLOW IVP PRN (05:49)
[2022-08-30] MEDS: Ketorolac Tromethamine 30 MG/ML VIAL IVP SCH ×3 (06:00→17:51)
[2022-08-30] MEDS: Diclofenac 1% 100 GM GEL TP SCH ×4 (07:43→21:00)
[2022-08-30] MEDS: cefTRIAXone\\ROCEPHIN 2 GM in Sodium Chloride 0.9% 100 ML IVPB SCH (20:34)
[2022-08-30] MEDS: Transdermal Patch Removal TOP SCH (21:46)
[2022-08-31] MEDS: Potassium Chloride 40 MEQ in Dextrose 5%-Lactated Ringers 1,000 ML IV SCH (05:24)
[2022-08-31] MEDS: Morphine 2 MG/ML VIAL SLOW IVP PRN (08:56)
[2022-08-31] MEDS: Diclofenac 1% 100 GM GEL TP SCH ×2 (08:58→12:30)
[2022-08-31 14:18] VITALS: BP 107/61; TEMP 99.8
[2022-08-31] MEDS: fentaNYL 75 mcg/hour Patch TD SCH (15:14)
[2022-09-03] MEDS ORDERED: Thiamine HCl 200 MG/2 ML VIAL SLOW IVP SCH (09:00)
== END 2022-08-31 15:01 | disposition hospice, home (50) | DRG 643 ==
LOC: ERS 13:57 → ERHOLD 18:00 → 2NO 08-25 00:17 → OBSVTOIN 08-25 09:32 → T4-B 08-27 23:17
PROVIDERS: ADMIT Internal Medicine; ATTEND Emergency Medicine
PROC: 0DH67UZ Insertion of Feeding Device into Stomach, Via Natural or Artificial Opening (ICD-10-PCS; principal; 2022-08-26)
PROC: 3E03305 Introduction of Other Antineoplastic into Peripheral Vein, Percutaneous Approach (ICD-10-PCS; 2022-08-26)
PROC: 3E0G76Z Introduction of Nutritional Substance into Upper GI, Via Natural or Artificial Opening (ICD-10-PCS; 2022-08-26)
DX: E22.2 Syndrome of inappropriate secretion of antidiuretic hormone (principal); E43 Unspecified severe protein-calorie malnutrition; J96.21 Acute and chronic respiratory failure with hypoxia; C34.90 Malignant neoplasm of unspecified part of unspecified bronchus or lung; C79.70 Secondary malignant neoplasm of unspecified adrenal gland; C79.31 Secondary malignant neoplasm of brain; J90 Pleural effusion, not elsewhere classified; Z68.1 Body mass index [BMI] 19.9 or less, adult; C77.9 Secondary and unspecified malignant neoplasm of lymph node, unspecified; E87.20 Acidosis, unspecified; G93.49 Other encephalopathy; Z51.5 Encounter for palliative care; E87.6 Hypokalemia; Z66 Do not resuscitate; J84.10 Pulmonary fibrosis, unspecified; R91.8 Other nonspecific abnormal finding of lung field; F17.210 Nicotine dependence, cigarettes, uncomplicated; J44.9 Chronic obstructive pulmonary disease, unspecified; R19.7 Diarrhea, unspecified; R79.89 Other specified abnormal findings of blood chemistry; E83.42 Hypomagnesemia; M81.0 Age-related osteoporosis without current pathological fracture; M06.9 Rheumatoid arthritis, unspecified; I10 Essential (primary) hypertension; R53.81 Other malaise; E86.1 Hypovolemia; E87.8 Other disorders of electrolyte and fluid balance, not elsewhere classified; D63.8 Anemia in other chronic diseases classified elsewhere; E83.39 Other disorders of phosphorus metabolism; I95.9 Hypotension, unspecified; Z20.822 Contact with and (suspected) exposure to COVID-19; Z90.49 Acquired absence of other specified parts of digestive tract; Z90.710 Acquired absence of both cervix and uterus; Z79.899 Other long term (current) drug therapy; Z85.89 Personal history of malignant neoplasm of other organs and systems; Z83.3 Family history of diabetes mellitus
CPT/HCPCS: 36415; 36416; 70450; 71275; 74018; 80048; 80053; 80069; 81001; 81015; 82436; 82533; 83605; 83735; 83880; 83930; 83935; 84100; 84133; 84145; 84300; 84443; 84484; 84550; 85025; 87040; 87449; 87899; 93005; 96365; 96372; 96375; 96376; C9113; G0378; J0692; J0696; J1650; J1885; J2060; J2270; J2272; J2405; J2543; J3411; J3475; J3480; J3490; J7050; J7999; P9047; Q9967